=== PATIENT | female | born 1950 | race Caucasian/White ===

== ENCOUNTER → 2016-08-16 | Outpatient (CLI) | payer MEDICARE ==
[~2016-08-16] MED LIST: /GLIM2TA OR; ACAR25TA2 PO; ACET65TA OR; ACTO15TA OR; ALEVE PO; AMAR1TAB5 PO; ASPI325T OR; ATOR40TA PO; CEFT2ADD IV; COLC0.6T OR; EYECAP PO; GASTROGRAFIN SOLUTION 30ML (Q9963) As Ordered ONE; GLIM1TAB OR; GLUC1000 OR; HEPARIN IV; HYDR25TA6 OR; ISOVUE-370 76% 100ML VIAL (Q9967) As Ordered ONE; LISI40TA OR; METO25TA74 PO; NITR4TASL SL; OMEP40CA2 PO; PERC5TAB8 OR; PERC7.5T8 OR; SALINE FLUSH; SIMV20TA2 OR; TOPR25TA PO; VENTAER IN; VERA120T OR; VITA200025 PO; VITA500C24 PO; VITAMIN D50000 UNT OR; ZANT150T OR
--- NOTE | 2016-08-16 11:10 | REP ---
Clinical: Generalized acute pain. Technique: Axial contrast enhanced images from the lung bases to the pubic symphysis using oral and 100 ml Isovue 370 intravenous contrast material along with precontrast images of the abdomen as well as coronal and sagittal re-formations. Comparison: 08/17/2015. Findings: Lung bases clear. Visualized heart and pericardium normal. Liver, spleen, pancreas, gallbladder, bilateral adrenal glands and kidneys are normal in appearance. Mild hepatomegaly cannot be excluded. The enteric system is without obstruction or acute inflammatory process. Pelvis demonstrates normal bladder and evidence for prior hysterectomy. No ascites. No adenopathy. No free air. Vasculature normal. Musculoskeletal structures demonstrate degenerative changes without focal osseous abnormality. Impression: Mild hepatomegaly cannot be excluded. No acute intra-abdominal or pelvic pathology appreciated. Signed by Kashif Hill MD 08/16/2016 11:01 A
[2016-08-16 14:23] LABS: AMYLASE 94 U/L (25-115)
== END ==
LOC: M RAD 09:03
PROVIDERS: ATTEND Nurse Practitioner Adult Health
DX: R16.0 Hepatomegaly, not elsewhere classified (principal); R11.0 Nausea
CPT/HCPCS: 74178; 82150; 83690; Q9963; Q9967

== ENCOUNTER → 2016-08-23 | Outpatient (CLI) | payer MEDICARE ==
[~2016-08-23] MED LIST changes: -GASTROGRAFIN SOLUTION 30ML (Q9963) As Ordered ONE; -ISOVUE-370 76% 100ML VIAL (Q9967) As Ordered ONE
--- NOTE | 2016-08-23 08:12 | REP ---
Abdominal right upper quadrant ultrasound: There is no cholelithiasis, gallbladder wall thickening or pericholecystic fluid. There is no intrahepatic or extrahepatic biliary duct dilatation, the common duct measures 0.5 7 cm in diameter. The liver is homogeneous but moderately enlarged measuring 18 cm cranial caudad length. The visualized portion of the pancreatic head is unremarkable. There is no right renal hydronephrosis, calculus, mass or cyst and the right kidney is normal size measuring 10.5 cm craniocaudad length. No free fluid is identified. Impression: Mild to moderate hepatomegaly. Otherwise, negative abdominal right upper quadrant ultrasound. Signed by Young Allen MD 08/23/2016 08:03 A
== END ==
LOC: M RAD 07:28
PROVIDERS: ATTEND Nurse Practitioner Adult Health
DX: R16.0 Hepatomegaly, not elsewhere classified (principal)

== ENCOUNTER → 2016-09-24 | Outpatient (CLI) | payer MEDICARE ==
--- NOTE | 2016-09-24 12:47 | REP ---
BILIARY SCAN WITH GALLBLADDER EJECTION FRACTION: 09/24/2016 CLINICAL HISTORY: Right upper quadrant pain with intermittent nausea, reflux symptoms, bloating and tenderness. COMPARISON: Right upper quadrant ultrasound 08/23/2016. FINDINGS: The patient received 6.4 mCi technetium 99m mebrofenin via an IV. Sequential 5-minute images for 1 hour. Tracer distribution to the gallbladder is generally homogeneous. Activity is first seen in the duodenum at 10 minutes and into the jejunum by 15 minutes. There is good washout of activity from the liver. Activity is first seen in the gallbladder at 30 minutes with progressive filling of that structure and washout from the liver progressing normally. The gallbladder ejection fraction is calculated at 36% for 60 minutes. Given this technique, the normal range is greater than 35%. So this is at the low end of the normal range. There appears to be complete washout of activity from the liver. IMPRESSION: 1. Prompt homogeneous tracer distribution throughout the liver with good washout of activity from the liver and prompt appearance of activity into the small bowel with peristalsis observed duodenal activity at 10 minutes, jejunum at 15 minutes and gallbladder activity first seen at 30 minutes with progressive filling of the gallbladder. 2. Gallbladder ejection fraction at 36% is just above the lower end of the normal range. Signed by David Bernal MD 09/24/2016 05:02 P
== END ==
LOC: M RAD 07:27
PROVIDERS: ATTEND Nurse Practitioner Adult Health
DX: R10.11 Right upper quadrant pain (principal)
CPT/HCPCS: 78227; A9537; J2805

== ENCOUNTER → 2018-12-02 | Outpatient (CLI) | payer MEDICARE ==
[~2018-12-02] MED LIST changes: -/GLIM2TA OR; +AMAR1TAB5 OR; -ATOR40TA PO; +ATOR40TA75 PO; +METO1TAB32 PO; -METO25TA74 PO
--- NOTE | 2018-12-02 12:10 | REP ---
BILATERAL SCREENING DIGITAL MAMMOGRAM WITH 3D TOMOSYNTHESIS: There are no palpable abnormalities or other breast complaints. The the patient states she had a clinical breast examination December 06, 2018. The Tyrer-Cuzick Score is: 5.1% . Comparison is 04/13/2013. There are scattered areas of fibroglandular density. There is no dominant mass, micro calcific cluster or architectural distortion that would indicate malignancy. There are benign calcifications bilaterally. There are no additional findings on 3D tomosynthesiss. There is no change from the prior study. Impression: BIRADS/ACR category 2 mammogram. Benign findings . Recommendation: Routine annual screening mammography. This mammogram was interpreted with the aid of a FDA approved computer-aided detection system. A. Negative mammogram reports should not delay biopsy if a dominant or clinically suspicious mass is present. B. Not all breast cancers are identified by mammography or tomosynthesis. C. Adenosis and dense breasts may obscure an underlying neoplasm. Patient letter M1. Electronically Signed by Young Allen MD 12/02/2018 12:01 P
== END ==
LOC: M RAD 09:05
PROVIDERS: ATTEND Nurse Practitioner Adult Health
DX: Z12.31 Encounter for screening mammogram for malignant neoplasm of breast (principal)

== ENCOUNTER → 2019-11-30 | Outpatient (REF) | payer MEDICARE ==
[~2019-11-30] MED LIST changes: -OMEP40CA2 PO; +OMEP40CA97 PO
== END ==
LOC: M WUC 09:24
PROVIDERS: ATTEND Physician Assistant
DX: N39.0 Urinary tract infection, site not specified (principal)

== ENCOUNTER → 2020-03-08 | Outpatient (REF) | payer MEDICARE ==
[2020-03-08 17:05] LABS: TOTAL PROTEIN 8.2 GM/DL (6.4-8.2)
[2020-03-10 09:37] LABS: ALBUMIN 3.72 GM/DL (3.29-5.55); ALBUMIN % 45.4 % (55.8-66.1)
[2020-03-10 09:38] LABS: ALPHA-1-GLOBULIN % 5.4 % (2.9-4.9); ALPHA-1-GLOBULINS 0.44 GM/DL (0.17-0.41); ALPHA-2-GLOBULINS 1.23 GM/DL (0.42-0.99); BETA-1-GLOBULINS % 7.3 % (4.7-7.2); BETA-2-GLOBULINS 0.63 GM/DL (0.19-0.55); BETA-2-GLOBULINS % 7.7 % (3.2-6.5); GAMMA GLOBULIN % 19.2 % (11.1-18.8); GAMMA GLOBULINS 1.57 GM/DL (0.65-1.58)
== END ==
LOC: M LAB REF 16:15
PROVIDERS: ATTEND Nurse Practitioner Adult Health
DX: R79.89 Other specified abnormal findings of blood chemistry (principal)

== ENCOUNTER → 2020-03-17 | Outpatient (CLI) | payer MEDICARE ==
--- NOTE | 2020-03-17 10:00 | REPMRS ---
Patient History The patient states she had a clinical breast exam in February 2020. No known family history of cancer. Took estrogen for 2 months. 3D TOMOSYNTHESIS WAS PERFORMED. The Miko Shane lifetime risk for breast cancer is 4.8%. Volpara breast density b. Digital Woman Screen Mammo: March 17, 2020 - Exam #: [id number] Bilateral CC and MLO view(s) were taken. Technologist: Isabel Vines, Technologist Prior study comparison: December 02, 2018, bilateral digital mammo screening bilat, performed at [facility]. March 21, 2017, bilateral digital mammo screening bilat, performed at [facility]. FINDINGS: The breast tissue is heterogeneously dense. This may lower the sensitivity of mammography. There has been no change in the appearance of the mammogram from the prior studies. There is a moderate amount of residual fibroglandular tissue which is fairly symmetric. There is no interval development of dominant mass, areas of architectural distortion, or clustered microcalcification typical of malignancy. Assessment: BI-RADS/ACR category 1 mammogram. Negative Mammogram. Recommendation Routine screening mammogram in 1 year (for women over age 40). This mammogram was interpreted with the aid of an FDA-approved computer-aided dectection system. Electronically Signed By: Young Mcbride MD 03/17/20 1000
== END ==
LOC: M WHC 07:58
PROVIDERS: ATTEND Nurse Practitioner Adult Health
DX: Z12.31 Encounter for screening mammogram for malignant neoplasm of breast (principal)

== ENCOUNTER → 2020-07-27 | Outpatient (CLI) | payer MEDICARE ==
[~2020-07-27] MED LIST changes: +ANTI GAS PO; +AZEL1SPR3 NARES; +BAYE325T13 PO; +BAYECHW PO; +CART1TAB2 PO; +D31000TA2 PO; +D32000TA2 PO; +ESSETAB4 PO; +GLIP5TAB8 PO; +LISI40TA4 PO; +LORA-932 PO; +METF-877 PO; +METF500T13 PO; +MULTTAB61 PO; +NEXI20CA PO; +NEXI20CA33 PO; +NORV5TAB PO; +OMEP-218 PO; +OSTE1TAB2 PO; +POTA10808 PO; +POTA4.25 PO; +PRESCAP PO; +QC A650T3 PO; +SIMV20TA22 PO; +TRAM50TA2 PO; +VITC1TAB PO
== END ==
LOC: M LABSMTC 09:57
PROVIDERS: ATTEND Anesthesiology
DX: Z01.812 Encounter for preprocedural laboratory examination (principal); Z20.822 Contact with and (suspected) exposure to COVID-19

== ENCOUNTER 2020-08-01 07:13 | Day surgery (SDC) | payer MEDICARE ==
[~2020-08-01] VITALS: Ht 157.5 cm; Wt 85.6 kg
[~2020-08-01 07:13] MED LIST changes: +NS 1,000 ML IV ONE
[2020-08-01] MEDS ORDERED: propofoL 500 MG/50 ML VIAL As Ordered ONE (08:10)
[2020-08-01] MEDS ORDERED: LIDOCAINE 2% 100MG/5ML SDV (FOR ANES.) As Ordered ONE (08:10)
--- NOTE | 2020-08-01 08:12 | ROOR ---
Patient Name: Jessica Morejon Procedure Date: 08/01/2020 7:59 AM Date of : 1950 Age: 70 Room: [facility] Gender: Female Note Status: Finalized Procedure: Upper GI endoscopy + APC Indications: Unexplained iron deficiency anemia Providers: Lucius Burkett MD Referring MD: Elyse Multani NP Requesting Provider: Medicines: Monitored Anesthesia Care Complications: No immediate complications. Procedure: Pre-Anesthesia Assessment: - The heart rate, respiratory rate, oxygen saturations, blood pressure, adequacy of pulmonary ventilation, and response to care were monitored throughout the procedure. The Endoscope was introduced through the mouth, and advanced to the second part of duodenum. The upper GI endoscopy was accomplished without difficulty. The patient tolerated the procedure well. Findings: The Z-line was regular and was found 40 cm from the incisors. Mild gastric antral vascular ectasia without bleeding was present in the gastric antrum. Coagulation for tissue destruction using argon plasma at 0.8 liters/minute and 35 baron was successful. The exam of the duodenum was otherwise normal. Impression: - Z-line regular, 40 cm from the incisors. - Gastric antral vascular ectasia without bleeding. Treated with argon plasma coagulation (APC). - No specimens collected. - The examination was otherwise normal. Recommendation: - Patient has a contact number available for emergencies. The signs and symptoms of potential delayed complications were discussed with the patient. Return to normal activities tomorrow. Written discharge instructions were provided to the patient. - High fiber diet. - Discharge patient to home. - Follow an antireflux regimen. - Continue present medications. - Use Prilosec (omeprazole) 40 mg PO daily. - Use sucralfate tablets 1 gram PO BID. - Return to referring physician. - The findings and recommendations were discussed with the patient. Procedure Code(s): --- Professional --- 52850, Esophagogastroduodenoscopy, flexible, transoral; with ablation of tumor(s), polyp(s), or other lesion(s) (includes pre- and post-dilation and guide wire passage, when performed) Diagnosis Code(s): --- Professional --- K31.819, Angiodysplasia of stomach and duodenum without bleeding D50.9, Iron deficiency anemia, unspecified CPT copyright 2019 [employer] [place]. All rights reserved. The codes documented in this report are preliminary and upon tool supervisor review may be revised to meet current compliance requirements. Lucius Burkett MD Lucius Burkett MD 08/01/2020 8:11:50 AM Electronically signed by Lucius Burkett MD Number of Addenda: 0 Note Initiated On: 08/01/2020 7:59 AM Estimated Blood Loss: Estimated blood loss: none.
--- NOTE | 2020-08-01 08:28 | ROOR ---
Patient Name: Jessica Morejon Procedure Date: 08/01/2020 8:00 AM Date of : 1950 Age: 70 Room: [id number] Gender: Female Note Status: Finalized Procedure: Total Colonoscopy to Cecum Indications: Unexplained iron deficiency anemia Providers: Lucius Burkett MD Referring MD: Elyse Multani NP Requesting Provider: Medicines: Monitored Anesthesia Care Complications: No immediate complications. Procedure: Pre-Anesthesia Assessment: - The heart rate, respiratory rate, oxygen saturations, blood pressure, adequacy of pulmonary ventilation, and response to care were monitored throughout the procedure. The Colonoscope was introduced through the anus and advanced to the cecum, identified by appendiceal orifice and ileocecal valve. The colonoscopy was performed without difficulty. The patient tolerated the procedure well. The quality of the bowel preparation was good. Findings: The perianal and digital rectal examinations were normal. Non-bleeding internal hemorrhoids were found during retroflexion. The hemorrhoids were small and Grade I (internal hemorrhoids that do not prolapse). Multiple small and large-mouthed diverticula were found in the rectum, recto-sigmoid colon, sigmoid colon and descending colon. The exam was otherwise without abnormality on direct and retroflexion views. Impression: - Non-bleeding internal hemorrhoids. - Diverticulosis in the rectum, in the recto-sigmoid colon, in the sigmoid colon and in the descending colon. - The examination was otherwise normal on direct and retroflexion views. - No specimens collected. - The exam was otherwise normal to the cecum. Recommendation: - Patient has a contact number available for emergencies. The signs and symptoms of potential delayed complications were discussed with the patient. Return to normal activities tomorrow. Written discharge instructions were provided to the patient. - High fiber diet. - Discharge patient to home. - Continue present medications. - Repeat colonoscopy is not recommended due to current age (66 years or older) for screening purposes. - Return to referring physician. - The findings and recommendations were discussed with the patient. Procedure Code(s): --- Professional --- 87311, Colonoscopy, flexible; diagnostic, including collection of specimen(s) by brushing or washing, when performed (separate procedure) Diagnosis Code(s): --- Professional --- K64.0, First degree hemorrhoids D50.9, Iron deficiency anemia, unspecified K57.30, Diverticulosis of large intestine without perforation or abscess without bleeding CPT copyright 2019 [employer]. All rights reserved. The codes documented in this report are preliminary and upon textile clothing and footwear mechanic review may be revised to meet current compliance requirements. Lucius Burkett MD Lucius Burkett MD 08/01/2020 8:27:47 AM Electronically signed by Lucius Burkett MD Number of Addenda: 0 Note Initiated On: 08/01/2020 8:00 AM Estimated Blood Loss: Estimated blood loss: none.
[2020-08-01 08:55] VITALS: BP 139/63
== END 2020-08-01 09:09 | disposition home or self-care (01) ==
LOC: M OPP 07:13
PROVIDERS: ATTEND Internal Medicine Gastroenterology
DX: K57.30 Diverticulosis of large intestine without perforation or abscess without bleeding (principal); K64.0 First degree hemorrhoids; D50.9 Iron deficiency anemia, unspecified; K31.819 Angiodysplasia of stomach and duodenum without bleeding; E11.9 Type 2 diabetes mellitus without complications; I10 Essential (primary) hypertension; Z86.79 Personal history of other diseases of the circulatory system; Z95.5 Presence of coronary angioplasty implant and graft; Z79.82 Long term (current) use of aspirin; Z79.84 Long term (current) use of oral hypoglycemic drugs; Z79.899 Other long term (current) drug therapy; Z88.5 Allergy status to narcotic agent; Z88.8 Allergy status to other drugs, medicaments and biological substances

== ENCOUNTER → 2021-01-26 | Outpatient (CLI) | payer MEDICARE ==
[~2021-01-26] MED LIST changes: -NS 1,000 ML IV ONE; +OMEP40CA4 PO; -OMEP40CA97 PO
--- NOTE | 2021-01-26 14:18 | REP ---
INDICATION: FOREIGN BODY IN COLON, INIT ENC--XR BTW 130 AND 2 PT TODAY. Patient reports having taken the Agile test capsule the previous day. COMPARISON: Comparison radiographs June 06, 2010. TECHNIQUE: KUB: Two views. FINDINGS: Bowel gas pattern is normal. There is no evidence of the ingested capsule. There is some vascular calcification in the pelvis bilaterally. Psoas margins are symmetric. IMPRESSION: Normal bowel gas pattern. There is no evidence of the ingested Agile patency capsule. <Electronically signed by Geronimo Patel > 01/26/21 [id number]
== END ==
LOC: M RAD 13:36
PROVIDERS: ATTEND Internal Medicine Gastroenterology
DX: T18.4XXA Foreign body in colon, initial encounter (principal)

== ENCOUNTER → 2021-04-25 | Outpatient (CLI) | payer MEDICARE ==
[2021-04-25 10:22] LABS: BASO # 0.1 10^3/uL (0.0-0.2); BASO % 0.7 % (0.0-1.0); EOS # 0.2 10^3/uL (0.0-0.5); EOS % 2.8 % (0.0-3.0); HEMATOCRIT 36.2 % (36.0-47.0); HEMOGLOBIN 11.6 g/dl (12.0-15.5); LYMPH # 1.5 10^3/uL (1.5-5.0); LYMPH % 17.8 % (24.0-44.0); MEAN CORPUSCULAR HEMOGLOBIN 30.7 pg (27.0-33.0); MEAN CORPUSCULAR VOLUME 95.8 fl (80.0-96.0); MONO # 0.9 10^3/uL (0.0-0.8); MONO % 10.6 % (2.0-8.0); NEUTROPHILS # 5.8 10^3/uL (1.5-8.5); NEUTROPHILS % 67.3 % (36.0-66.0); PLATELET COUNT, AUTOMATED 224 10^3/uL (150-450); RED BLOOD COUNT 3.78 10^6/uL (4.00-5.40); WHITE BLOOD COUNT 8.6 10^3/uL (4.0-10.0)
[2021-04-25 11:00] LABS: ALBUMIN 3.3 GM/DL (3.2-5.2); ALT/SGPT 65 U/L (12-78); BILIRUBIN,TOTAL 0.5 MG/DL (0.2-1.0); BLOOD UREA NITROGEN 20 MG/DL (7-18); CALCIUM LEVEL 8.5 MG/DL (8.8-10.2); CARBON DIOXIDE LEVEL 26 MEQ/L (21-32); CHLORIDE LEVEL 103 MEQ/L (98-107); CREATININE FOR GFR 0.96 MG/DL (0.55-1.30); GLOMERULAR FILTRATION RATE > 60.0 (>39); GLUCOSE, FASTING 327 MG/DL (70-100); POTASSIUM SERUM 4.6 MEQ/L (3.5-5.1); SODIUM LEVEL 135 MEQ/L (136-145); TOTAL PROTEIN 8.2 GM/DL (6.4-8.2)
--- NOTE | 2021-04-25 11:36 | REP ---
INDICATION: ANGIODYSPLASIA OF STOM . COMPARISON: 08/23/2016. TECHNIQUE: Real-time sonographic evaluation of right upper quadrant performed. FINDINGS: The gallbladder demonstrates no evidence of intraluminal sludge or calculi, wall thickening or pericholecystic fluid. There is no intrahepatic or extrahepatic biliary dilatation, common bile duct measures 2 mm in maximum diameter. The liver demonstrates homogeneous echotexture with no gross mass. The pancreas demonstrates homogeneous echotexture with no gross mass. The right kidney demonstrates no hydronephrosis, with a normal size of 10.7 cm in length. No free fluid is seen. IMPRESSION: Negative right upper quadrant ultrasound. <Electronically signed by Young Mcbride > 04/25/21 [id number]
[2021-04-26 13:11] LABS: ANTINUCLEAR ANTIBODIES DIRECT Negative (Negative)
== END ==
LOC: M LAB 08:56
PROVIDERS: ATTEND Internal Medicine Gastroenterology
DX: K31.819 Angiodysplasia of stomach and duodenum without bleeding (principal)

== ENCOUNTER → 2021-06-28 | Outpatient (CLI) | payer MEDICARE ==
[~2021-06-28] MED LIST changes: +ACET650T61 PO; +INSULANT SC; +LISI20TA33 PO; +OMEP-173 PO; -OMEP-218 PO
== END ==
LOC: M LABSMTC 09:21
PROVIDERS: ATTEND Anesthesiology
DX: Z01.812 Encounter for preprocedural laboratory examination (principal); Z20.822 Contact with and (suspected) exposure to COVID-19

== ENCOUNTER 2021-07-03 09:23 | Day surgery (SDC) | payer MEDICARE ==
[~2021-07-03] VITALS: Ht 157.5 cm; Wt 86.6 kg
[~2021-07-03 09:23] MED LIST changes: +NS 1,000 ML IV ONE
[2021-07-03] MEDS ORDERED: propofoL 200 MG/20 ML VIAL As Ordered ONE (11:18)
[2021-07-03] MEDS ORDERED: LIDOCAINE 2% 100MG/5ML SDV (FOR ANES.) As Ordered ONE (11:19)
[2021-07-03 12:06] VITALS: BP 139/65
== END 2021-07-03 12:17 | disposition home or self-care (01) ==
LOC: M OPP 09:23
PROVIDERS: ATTEND Internal Medicine Gastroenterology
DX: K31.819 Angiodysplasia of stomach and duodenum without bleeding (principal); Z79.4 Long term (current) use of insulin; Z79.82 Long term (current) use of aspirin; Z79.899 Other long term (current) drug therapy; Z88.5 Allergy status to narcotic agent; Z88.8 Allergy status to other drugs, medicaments and biological substances

== ENCOUNTER → 2021-08-10 | Outpatient (CLI) | payer MEDICARE ==
[~2021-08-10] MED LIST changes: -D31000TA2 PO; -NS 1,000 ML IV ONE; +VITA100093 PO
== END ==
LOC: M WHC 08:12
PROVIDERS: ATTEND Nurse Practitioner Adult Health
DX: Z12.31 Encounter for screening mammogram for malignant neoplasm of breast (principal); Z78.0 Asymptomatic menopausal state

== ENCOUNTER → 2021-11-07 | Outpatient (CLI) | payer MEDICARE | LOC: M SLEEP HO 13:49 | PROVIDERS: ATTEND Internal Medicine Cardiovascular Disease | DX: I27.20 Pulmonary hypertension, unspecified (principal) ==

== ENCOUNTER 2022-11-07 18:22 | Emergency (ER) | payer OTHER, MEDICARE ==
[~2022-11-07] VITALS: Ht 160 cm; Wt 97.8 kg
[2022-11-07 18:27] VITALS: TEMP 97.8
[2022-11-07] MEDS ORDERED: LIDOCAINE 4% CREAM 5GM (LMX4) TOP ONE (21:30)
[2022-11-07] MEDS ORDERED: ACETAMINOPHEN 500 MG TAB PO ONE (21:30)
[2022-11-07] MEDS ORDERED: ANEC4CRE3 TOP (22:55)
[2022-11-07 22:57] VITALS: BP 182/76; O2SAT 98
== END 2022-11-07 23:02 | disposition home or self-care (01) ==
LOC: M ED 18:22
DX: S80.01XA Contusion of right knee, initial encounter (principal); S80.02XA Contusion of left knee, initial encounter; V49.40XA Driver injured in collision with unspecified motor vehicles in traffic accident, initial encounter; Y92.410 Unspecified street and highway as the place of occurrence of the external cause; E11.9 Type 2 diabetes mellitus without complications; I25.2 Old myocardial infarction; I10 Essential (primary) hypertension; K21.9 Gastro-esophageal reflux disease without esophagitis; Z88.8 Allergy status to other drugs, medicaments and biological substances; Z79.899 Other long term (current) drug therapy; Z79.84 Long term (current) use of oral hypoglycemic drugs; Z79.1 Long term (current) use of non-steroidal anti-inflammatories (NSAID)

== ENCOUNTER → 2023-08-07 | Outpatient (REF) | payer OTHER, MEDICARE ==
[~2023-08-07] MED LIST changes: +ANEC4CRE3 TOP; +GLIP5TAB17 PO; -GLIP5TAB8 PO
[2023-08-07 14:19] LABS: PERCENT SATURATION 5.4 % (13.2-45.0)
[2023-08-07 14:23] LABS: FERRITIN 5.7 NG/ML (7.3-270.7)
== END ==
LOC: M LAB REF 12:21
PROVIDERS: ATTEND Nurse Practitioner Family
DX: D64.9 Anemia, unspecified (principal)

== ENCOUNTER → 2023-10-11 | Outpatient (CLI) | payer MEDICARE | LOC: M PLAIMG 15:02 | PROVIDERS: ATTEND Internal Medicine Cardiovascular Disease | DX: I50.32 Chronic diastolic (congestive) heart failure (principal); I34.0 Nonrheumatic mitral (valve) insufficiency ==

== ENCOUNTER → 2023-11-01 | Outpatient (REF) | payer MEDICARE ==
[2023-11-01 13:58] LABS: FERRITIN 5.6 NG/ML (7.3-270.7)
== END ==
LOC: M LAB REF 12:34
PROVIDERS: ATTEND Nurse Practitioner Family
DX: D50.9 Iron deficiency anemia, unspecified (principal)

== ENCOUNTER → 2023-11-18 | Outpatient (CLI) | payer MEDICARE ==
[2023-11-18 11:04] LABS: BASO % 0.6 % (0.0-1.0); EOS # 0.3 10^3/uL (0.0-0.5); EOS % 3.5 % (0.0-3.0); HEMATOCRIT 27.3 % (36.0-47.0); HEMOGLOBIN 7.5 g/dl (12.0-15.5); LYMPH # 1.2 10^3/uL (1.5-5.0); LYMPH % 16.2 % (24.0-44.0); MEAN CORPUSCULAR HEMOGLOBIN 24.8 pg (27.0-33.0); MEAN CORPUSCULAR HGB CONC 27.5 g/dl (32.0-36.5); MEAN CORPUSCULAR VOLUME 90.4 fl (80.0-96.0); MONO # 0.9 10^3/uL (0.0-0.8); MONO % 12.3 % (2.0-8.0); NEUTROPHILS # 4.9 10^3/uL (1.5-8.5); PLATELET COUNT, AUTOMATED 273 10^3/uL (150-450); RED BLOOD COUNT 3.02 10^6/uL (4.00-5.40); WHITE BLOOD COUNT 7.2 10^3/uL (4.0-10.0)
[2023-11-18 11:40] LABS: ALBUMIN 3.1 G/DL (3.2-5.2); BLOOD UREA NITROGEN 15 MG/DL (9-23); CARBON DIOXIDE LEVEL 24 MMOL/L (20-31); CHLORIDE LEVEL 111 MMOL/L (98-107); CREATININE FOR GFR 0.78 MG/DL (0.55-1.30); GLOMERULAR FILTRATION RATE > 60.0 (>39); GLUCOSE, FASTING 154 MG/DL (74-106); PHOSPHORUS LEVEL 2.7 MG/DL (2.4-5.1); POTASSIUM SERUM 4.3 MMOL/L (3.5-5.1); SODIUM LEVEL 142 MMOL/L (136-145)
== END ==
LOC: M LAB 10:33
PROVIDERS: ATTEND Internal Medicine Cardiovascular Disease
DX: I50.33 Acute on chronic diastolic (congestive) heart failure (principal); D50.0 Iron deficiency anemia secondary to blood loss (chronic); I11.0 Hypertensive heart disease with heart failure

== ENCOUNTER → 2023-11-29 | Outpatient (CLI) | payer MEDICARE ==
[2023-11-29 14:50] LABS: ALBUMIN 3.2 G/DL (3.2-5.2); BLOOD UREA NITROGEN 16 MG/DL (9-23); CALCIUM LEVEL 7.9 MG/DL (8.3-10.6); CARBON DIOXIDE LEVEL 26 MMOL/L (20-31); CHLORIDE LEVEL 110 MMOL/L (98-107); CREATININE FOR GFR 0.91 MG/DL (0.55-1.30); GLOMERULAR FILTRATION RATE > 60.0 (>39); GLUCOSE, FASTING 134 MG/DL (74-106); PHOSPHORUS LEVEL 3.3 MG/DL (2.4-5.1); POTASSIUM SERUM 4.1 MMOL/L (3.5-5.1); SODIUM LEVEL 143 MMOL/L (136-145)
== END ==
LOC: M LAB 13:47
PROVIDERS: ATTEND Internal Medicine Cardiovascular Disease
DX: I50.33 Acute on chronic diastolic (congestive) heart failure (principal)

== ENCOUNTER 2023-12-03 16:20 | Inpatient (IN) | payer MEDICARE ==
[~2023-12-03] VITALS: Ht 157.5 cm; Wt 98.3 kg
[2023-12-03] MEDS: NS 1,000 ML IV SCH (17:25)
[2023-12-03] MEDS: MORPHINE 4 MG/ML 1ML VIAL IV ONE ×2 (17:25→22:48)
[2023-12-03 17:55] LABS: BASO % 0.4 % (0.0-1.0); EOS # 0.1 10^3/uL (0.0-0.5); EOS % 1.2 % (0.0-3.0); HEMATOCRIT 28.5 % (36.0-47.0); HEMOGLOBIN 8.1 g/dl (12.0-15.5); LYMPH # 0.9 10^3/uL (1.5-5.0); LYMPH % 9.2 % (24.0-44.0); MEAN CORPUSCULAR HEMOGLOBIN 26.8 pg (27.0-33.0); MEAN CORPUSCULAR HGB CONC 28.4 g/dl (32.0-36.5); MEAN CORPUSCULAR VOLUME 94.4 fl (80.0-96.0); MONO # 0.9 10^3/uL (0.0-0.8); MONO % 9.3 % (2.0-8.0); NEUTROPHILS # 7.4 10^3/uL (1.5-8.5); NEUTROPHILS % 79.1 % (36.0-66.0); PLATELET COUNT, AUTOMATED 268 10^3/uL (150-450); RED BLOOD COUNT 3.02 10^6/uL (4.00-5.40); WHITE BLOOD COUNT 9.4 10^3/uL (4.0-10.0)
[2023-12-03 18:05] LABS: INR 1.16; PARTIAL THROMBOPLASTIN TIME 31.3 SECONDS (24.8-34.2); PROTHROMBIN TIME 14.4 SECONDS (12.5-14.5)
[2023-12-03] MEDS: MORPHINE 4 MG/ML 1ML VIAL IV PRN (18:08)
[2023-12-03] MEDS: ONDANSETRON 4MG 2ML VIAL IV ONE (18:08)
[2023-12-03 18:14] LABS: CK-MB VALUE MASS < 1.0 NG/ML (<3.6)
[2023-12-03 18:15] LABS: ALBUMIN 3.1 G/DL (3.2-5.2); ALKALINE PHOSPHATASE 83 U/L (46-116); ALT/SGPT 19 U/L (7.0-40); AST/SGOT 25 U/L (<34); BILIRUBIN,DIRECT 0.1 MG/DL (<0.4); BILIRUBIN,TOTAL 0.4 MG/DL (0.3-1.2); BLOOD UREA NITROGEN 13 MG/DL (9-23); CALCIUM LEVEL 7.7 MG/DL (8.3-10.6); CARBON DIOXIDE LEVEL 23 MMOL/L (20-31); CHLORIDE LEVEL 110 MMOL/L (98-107); CPK CREATINE PHOSPHOKINASE 103 U/L (34-145); CREATININE FOR GFR 0.83 MG/DL (0.55-1.30); GLOMERULAR FILTRATION RATE > 60.0 (>39); GLUCOSE, FASTING 128 MG/DL (74-106); MB/CK RELATIVE INDEX 0.97 (< OR =4); SODIUM LEVEL 144 MMOL/L (136-145); TOTAL PROTEIN 7.3 G/DL (5.7-8.2)
[2023-12-03] MEDS ORDERED: METO1TAB7 PO (21:20)
[2023-12-03] MEDS ORDERED: OMEP-173 PO (21:20)
[2023-12-03] MEDS ORDERED: ONETAB35 PO (21:20)
[2023-12-03] MEDS ORDERED: EQL50TAB2 PO (21:25)
[2023-12-03] MEDS ORDERED: HOME MED LIST COMPLETE! XX SCH (21:30)
[2023-12-03] MEDS: ACETAMINOPHEN 500 MG TAB PO ONE (22:05)
[2023-12-03] MEDS ORDERED: NALOXONE INJ 0.4MG/1ML VIAL IV PRN (22:20)
[2023-12-03] MEDS ORDERED: DEXTROSE 50% 50ML SYRINGE IV PRN (22:20)
[2023-12-03] MEDS: LR 1,000 ML IV SCH (22:20)
[2023-12-03] MEDS ORDERED: ACETAMINOPHEN TAB 650MG DOSE (2X325MG) PO PRN (22:20)
[2023-12-03] MEDS ORDERED: GLUCOSE 4 GM CHEW PO PRN (22:20)
[2023-12-03] MEDS ORDERED: MAALOX 30 ML SUSP *UDC PO PRN (22:20)
[2023-12-03] MEDS ORDERED: GLUCAGON INJ 1MG VIAL SC PRN (22:20)
[2023-12-03] MEDS: METHOCARBAMOL 1,000 MG/10 ML VIAL IV ONE (22:50)
[2023-12-03] MEDS ORDERED: METHOCARBAMOL 1,000 MG/10 ML VIAL IV PRN (23:15)
[2023-12-03 23:55] LABS: MAGNESIUM LEVEL 1.3 MG/DL (1.8-2.4)
[2023-12-04] VITALS (13 sets, daily range): BP systolic 120–162; BP diastolic 54–81; TEMP 97.9–98.8; O2SAT 90–97
[2023-12-04] MEDS: INSULIN LISPRO (NovoLOG) PER UNIT SC SCH ×2 (01:02→20:57)
[2023-12-04] MEDS: MAGNESIUM OXIDE 400MG TAB (MAG-OX) PO ONE (01:03)
[2023-12-04] MEDS: MAG SULF 1GM/100ML (MAG RUN) 1 GM in IV 1 EA IV SCH (01:04)
[2023-12-04] MEDS: ONDANSETRON 4MG 2ML VIAL IV PRN ×2 (01:16→16:44)
[2023-12-04] MEDS: METOCLOPRAMIDE INJ 10MG/2ML VIAL IV ONE (03:19)
[2023-12-04 06:14] LABS: MEAN CORPUSCULAR HEMOGLOBIN 26.8 pg (27.0-33.0); MEAN CORPUSCULAR HGB CONC 28.8 g/dl (32.0-36.5); MEAN CORPUSCULAR VOLUME 93.4 fl (80.0-96.0); PLATELET COUNT, AUTOMATED 265 10^3/uL (150-450); RED BLOOD COUNT 2.57 10^6/uL (4.00-5.40); WHITE BLOOD COUNT 8.3 10^3/uL (4.0-10.0)
[2023-12-04] MEDS: HYDROMORPHONE HCL 0.5 MG/ 0.5 ML SYRINGE IV PRN ×3 (06:21→16:44)
[2023-12-04 06:35] LABS: HEMOGLOBIN 6.9 g/dl (12.0-15.5)
[2023-12-04 06:42] LABS: ALBUMIN 2.8 G/DL (3.2-5.2); ALKALINE PHOSPHATASE 71 U/L (46-116); ALT/SGPT 19 U/L (7.0-40); AST/SGOT 21 U/L (<34); BILIRUBIN,TOTAL 0.5 MG/DL (0.3-1.2); BLOOD UREA NITROGEN 12 MG/DL (9-23); CALCIUM LEVEL 7.6 MG/DL (8.3-10.6); CARBON DIOXIDE LEVEL 26 MMOL/L (20-31); CHLORIDE LEVEL 109 MMOL/L (98-107); CREATININE FOR GFR 0.75 MG/DL (0.55-1.30); GLOMERULAR FILTRATION RATE > 60.0 (>39); GLUCOSE, FASTING 170 MG/DL (74-106); MAGNESIUM LEVEL 1.8 MG/DL (1.8-2.4); POTASSIUM SERUM 4.5 MMOL/L (3.5-5.1); SODIUM LEVEL 140 MMOL/L (136-145); TOTAL PROTEIN 6.6 G/DL (5.7-8.2)
[2023-12-04 07:20] LABS: RSV AMPLIFICATION NEGATIVE (NEGATIVE)
[2023-12-04] MEDS: PANTOPRAZOLE 40MG VIAL IV SCH (08:45)
[2023-12-04] MEDS: DOCUSATE SODIUM 100MG CAPSULE PO SCH (08:46)
[2023-12-04] MEDS: ATORVASTATIN 20 MG TAB PO SCH (08:46)
[2023-12-04] MEDS: amLODIPine 5 MG TAB PO SCH (08:47)
[2023-12-04] MEDS: METOPROLOL SUCC (TopROL XL) 50MG **XL** TAB PO SCH (08:47)
[2023-12-04] MEDS: OMEPRAZOLE 20MG CAP PO SCH (08:47)
[2023-12-04] MEDS ORDERED: MIDAZOLAM INJ 2MG/2ML VIAL As Ordered ONE (13:24)
[2023-12-04] MEDS ORDERED: fentaNYL 100 MCG/2 ML INJECTION As Ordered ONE (13:24)
[2023-12-04] MEDS ORDERED: LIDOCAINE 2% 100MG/5ML SDV (FOR ANES.) As Ordered ONE (13:25)
[2023-12-04] MEDS ORDERED: ACETAMINOPHEN 1000MG 100ML IV BAG As Ordered ONE (13:25)
[2023-12-04] MEDS ORDERED: propofoL 200 MG/20 ML VIAL As Ordered ONE (13:25)
[2023-12-04] MEDS ORDERED: ONDANSETRON 4MG 2ML VIAL As Ordered ONE (13:25)
[2023-12-04] MEDS ORDERED: HYDROMORPHONE HCL 0.5 MG/ 0.5 ML SYRINGE IV PRN (14:10)
[2023-12-04] MEDS ORDERED: PHENYLephrine 500MCG 5ML (100MCG/ML) SYRINGE As Ordered ONE (15:17)
[2023-12-04] MEDS ORDERED: ePHEDrine SULFATE 25 MG/5 ML(5MG/ML) SYRINGE As Ordered ONE (15:17)
[2023-12-04] MEDS: ceFAZolin 2 GM/D5W 50 ML IV BAG As Ordered ONE (15:28)
[2023-12-04] MEDS ORDERED: oxyCODONE 5MG TAB PO PRN (16:25)
[2023-12-04] MEDS: LR 1,000 ML IV SCH (16:25)
[2023-12-04] MEDS ORDERED: fentaNYL 100 MCG/2 ML INJECTION IV PRN (16:25)
[2023-12-04] MEDS: METOCLOPRAMIDE INJ 10MG/2ML VIAL IV PRN (17:02)
[2023-12-04] MEDS: PROMETHAZINE 25MG/ML 1ML VIAL IV PRN (17:25)
[2023-12-04 17:40] LABS: HEMATOCRIT 27.1 % (36.0-47.0); HEMOGLOBIN 8.1 g/dl (12.0-15.5); MEAN CORPUSCULAR HEMOGLOBIN 27.4 pg (27.0-33.0); MEAN CORPUSCULAR HGB CONC 29.9 g/dl (32.0-36.5); MEAN CORPUSCULAR VOLUME 91.6 fl (80.0-96.0); PLATELET COUNT, AUTOMATED 314 10^3/uL (150-450); RED BLOOD COUNT 2.96 10^6/uL (4.00-5.40); WHITE BLOOD COUNT 14.9 10^3/uL (4.0-10.0)
[2023-12-05] VITALS (14 sets, daily range): BP systolic 93–159; BP diastolic 48–94; TEMP 97.9–99.5; O2SAT 90–96
[2023-12-05] MEDS: ceFAZolin SOD 2 GM in IV 1 EA IV SCH (00:40)
[2023-12-05] MEDS: ACETAMINOPHEN 500 MG TAB PO SCH (06:00)
[2023-12-05] MEDS ORDERED: KETOROLAC 30 MG/ML 1ML VIAL IV PRN (07:35)
[2023-12-05 08:05] LABS: MEAN CORPUSCULAR HEMOGLOBIN 27.2 pg (27.0-33.0); MEAN CORPUSCULAR VOLUME 90.8 fl (80.0-96.0); PLATELET COUNT, AUTOMATED 241 10^3/uL (150-450); RED BLOOD COUNT 2.39 10^6/uL (4.00-5.40); WHITE BLOOD COUNT 8.7 10^3/uL (4.0-10.0)
[2023-12-05 08:08] LABS: HEMATOCRIT 21.7 % (36.0-47.0); HEMOGLOBIN 6.5 g/dl (12.0-15.5)
[2023-12-05 08:18] LABS: BLOOD UREA NITROGEN 18 MG/DL (9-23); CALCIUM LEVEL 7.7 MG/DL (8.3-10.6); CARBON DIOXIDE LEVEL 25 MMOL/L (20-31); CHLORIDE LEVEL 106 MMOL/L (98-107); CREATININE FOR GFR 0.89 MG/DL (0.55-1.30); GLOMERULAR FILTRATION RATE > 60.0 (>39); GLUCOSE, FASTING 247 MG/DL (74-106); POTASSIUM SERUM 4.9 MMOL/L (3.5-5.1); SODIUM LEVEL 137 MMOL/L (136-145)
[2023-12-05] MEDS: INSULIN LISPRO (NovoLOG) PER UNIT SC SCH (08:31)
[2023-12-05] MEDS: NS 1,000 ML IV SCH (08:32)
[2023-12-05] MEDS: PERCOCET 5MG/325MG TAB PO PRN (08:32)
[2023-12-05] MEDS: CYCLOBENZAPRINE 5MG TABLET PO SCH (08:36)
[2023-12-05 19:06] LABS: HEMATOCRIT 28.3 % (36.0-47.0); MEAN CORPUSCULAR HEMOGLOBIN 28.5 pg (27.0-33.0); MEAN CORPUSCULAR HGB CONC 31.4 g/dl (32.0-36.5); MEAN CORPUSCULAR VOLUME 90.7 fl (80.0-96.0); PLATELET COUNT, AUTOMATED 197 10^3/uL (150-450); RED BLOOD COUNT 3.12 10^6/uL (4.00-5.40); WHITE BLOOD COUNT 8.1 10^3/uL (4.0-10.0)
[2023-12-05 19:10] LABS: HEMOGLOBIN 8.9 g/dl (12.0-15.5)
[2023-12-06] MEDS ORDERED: amLODIPine 5 MG TAB As Ordered ONE (09:45)
[2023-12-06] MEDS ORDERED: OMEPRAZOLE 20MG CAP As Ordered ONE (09:45)
[2023-12-06] MEDS ORDERED: ATORVASTATIN 20 MG TAB As Ordered ONE (09:45)
[2023-12-06] MEDS ORDERED: DOCUSATE SODIUM 100MG CAPSULE As Ordered ONE (09:45)
[2023-12-06] MEDS ORDERED: METOPROLOL SUCC (TopROL XL) 50MG **XL** TAB As Ordered ONE (09:45)
[2023-12-06] MEDS ORDERED: PANTOPRAZOLE 40MG VIAL As Ordered ONE (09:46)
[2023-12-06] MEDS ORDERED: INSULIN LISPRO (NovoLOG) PER UNIT As Ordered ONE (11:48)
[2023-12-06 12:00] VITALS: BP 144/68; TEMP 99; O2SAT 90
[2023-12-06 13:53] LABS: ALBUMIN 2.6 G/DL (3.2-5.2); ALKALINE PHOSPHATASE 65 U/L (46-116); ALT/SGPT 11 U/L (7.0-40); AST/SGOT 19 U/L (<34); BILIRUBIN,TOTAL 1.1 MG/DL (0.3-1.2); BLOOD UREA NITROGEN 17 MG/DL (9-23); CALCIUM LEVEL 8.2 MG/DL (8.3-10.6); CARBON DIOXIDE LEVEL 24 MMOL/L (20-31); CHLORIDE LEVEL 104 MMOL/L (98-107); CREATININE FOR GFR 0.75 MG/DL (0.55-1.30); GLOMERULAR FILTRATION RATE > 60.0 (>39); GLUCOSE, FASTING 264 MG/DL (74-106); MAGNESIUM LEVEL 1.5 MG/DL (1.8-2.4); PHOSPHORUS LEVEL 1.8 MG/DL (2.4-5.1); POTASSIUM SERUM 4.4 MMOL/L (3.5-5.1); SODIUM LEVEL 135 MMOL/L (136-145); TOTAL PROTEIN 6.4 G/DL (5.7-8.2)
[2023-12-06] MEDS: MAG SULF 1GM/100ML (MAG RUN) 1 GM in IV 1 EA IV SCH (16:14)
[2023-12-06 16:52] LABS: HEMOGLOBIN 9.3 g/dl (12.0-15.5); MEAN CORPUSCULAR HEMOGLOBIN 28.2 pg (27.0-33.0); MEAN CORPUSCULAR VOLUME 90.9 fl (80.0-96.0); PLATELET COUNT, AUTOMATED 200 10^3/uL (150-450); WHITE BLOOD COUNT 9.4 10^3/uL (4.0-10.0)
[2023-12-06] MEDS: HALOPERIDOL LACTATE 5MG/ML VIAL IM PRN (18:39)
[2023-12-06 20:00] VITALS: BP 124/61; TEMP 98.2; O2SAT 88
[2023-12-07 04:00] VITALS: BP_SYST 153; BP_DIAS 56; BP_DIAS 76; TEMP 98.4; O2SAT 92
[2023-12-07 06:59] LABS: HEMATOCRIT 28.3 % (36.0-47.0); HEMOGLOBIN 8.7 g/dl (12.0-15.5); MEAN CORPUSCULAR HEMOGLOBIN 28.2 pg (27.0-33.0); MEAN CORPUSCULAR HGB CONC 30.7 g/dl (32.0-36.5); MEAN CORPUSCULAR VOLUME 91.6 fl (80.0-96.0); PLATELET COUNT, AUTOMATED 197 10^3/uL (150-450); RED BLOOD COUNT 3.09 10^6/uL (4.00-5.40); WHITE BLOOD COUNT 10.1 10^3/uL (4.0-10.0)
[2023-12-07 07:25] LABS: BLOOD UREA NITROGEN 17 MG/DL (9-23); CALCIUM LEVEL 8.2 MG/DL (8.3-10.6); CARBON DIOXIDE LEVEL 26 MMOL/L (20-31); CHLORIDE LEVEL 102 MMOL/L (98-107); CREATININE FOR GFR 0.72 MG/DL (0.55-1.30); GLOMERULAR FILTRATION RATE > 60.0 (>39); GLUCOSE, FASTING 271 MG/DL (74-106); MAGNESIUM LEVEL 1.8 MG/DL (1.8-2.4); POTASSIUM SERUM 4.4 MMOL/L (3.5-5.1); SODIUM LEVEL 134 MMOL/L (136-145)
[2023-12-07 12:00] VITALS: BP 130/80; TEMP 98.6; O2SAT 94
[2023-12-07 20:00] VITALS: BP 109/67; TEMP 97.7; O2SAT 94
[2023-12-07] MEDS: LEVEMIR (INSULIN DETEMIR) 1 UNITS/0.01ML SC SCH (21:08)
[2023-12-07] MEDS: HEPARIN SOD (PORCINE) 5000UNITS/ML 1ML VIAL/SYRINGE SQ SCH (21:08)
[2023-12-07] MEDS: NITROFURANTOIN (MACROBID) 100 MG CAP PO SCH (21:09)
[2023-12-08 04:00] VITALS: BP 132/64; TEMP 97.9; O2SAT 94
[2023-12-08 06:50] LABS: BASO % 0.2 % (0.0-1.0); EOS # 0.4 10^3/uL (0.0-0.5); EOS % 4.8 % (0.0-3.0); HEMATOCRIT 28.4 % (36.0-47.0); HEMOGLOBIN 8.7 g/dl (12.0-15.5); LYMPH % 12.7 % (24.0-44.0); MEAN CORPUSCULAR HEMOGLOBIN 28.4 pg (27.0-33.0); MEAN CORPUSCULAR HGB CONC 30.6 g/dl (32.0-36.5); MEAN CORPUSCULAR VOLUME 92.8 fl (80.0-96.0); MONO % 12.1 % (2.0-8.0); NEUTROPHILS # 5.6 10^3/uL (1.5-8.5); NEUTROPHILS % 69.3 % (36.0-66.0); PLATELET COUNT, AUTOMATED 186 10^3/uL (150-450); RED BLOOD COUNT 3.06 10^6/uL (4.00-5.40); WHITE BLOOD COUNT 8.1 10^3/uL (4.0-10.0)
[2023-12-08 07:16] LABS: BLOOD UREA NITROGEN 18 MG/DL (9-23); CARBON DIOXIDE LEVEL 26 MMOL/L (20-31); CHLORIDE LEVEL 105 MMOL/L (98-107); CREATININE FOR GFR 0.68 MG/DL (0.55-1.30); GLOMERULAR FILTRATION RATE > 60.0 (>39); GLUCOSE, FASTING 195 MG/DL (74-106); MAGNESIUM LEVEL 1.6 MG/DL (1.8-2.4); SODIUM LEVEL 137 MMOL/L (136-145)
[2023-12-08] MEDS: MAG SULF 1GM/100ML (MAG RUN) 1 GM in IV 1 EA IV SCH (08:19)
[2023-12-08] MEDS: MOM 30ML SUSPENSION UDC PO PRN (10:23)
[2023-12-08 12:00] VITALS: BP 133/54; TEMP 98.1; O2SAT 96
[2023-12-08 19:33] VITALS: BP 141/60; TEMP 98.1; O2SAT 95
[2023-12-08] MEDS: HEPARIN SOD (PORCINE) 5000UNITS/ML 1ML VIAL/SYRINGE SQ SCH (20:12)
[2023-12-09 04:23] VITALS: BP 156/68; TEMP 97.5; O2SAT 95
[2023-12-09 11:55] VITALS: BP 132/62; TEMP 98.1; O2SAT 96
[2023-12-09] MEDS: PERCOCET 5MG/325MG TAB PO PRN (19:29)
[2023-12-09 19:44] VITALS: BP 143/66; TEMP 98.1; O2SAT 96
[2023-12-10 04:12] VITALS: BP 124/89; TEMP 97.2; O2SAT 98
[2023-12-10 08:45] LABS: BASO % 0.4 % (0.0-1.0); EOS # 0.3 10^3/uL (0.0-0.5); EOS % 3.8 % (0.0-3.0); HEMATOCRIT 30.2 % (36.0-47.0); HEMOGLOBIN 9.3 g/dl (12.0-15.5); LYMPH # 1.2 10^3/uL (1.5-5.0); LYMPH % 14.5 % (24.0-44.0); MEAN CORPUSCULAR HEMOGLOBIN 28.4 pg (27.0-33.0); MEAN CORPUSCULAR HGB CONC 30.8 g/dl (32.0-36.5); MEAN CORPUSCULAR VOLUME 92.1 fl (80.0-96.0); MONO % 11.3 % (2.0-8.0); NEUTROPHILS # 5.9 10^3/uL (1.5-8.5); NEUTROPHILS % 69.3 % (36.0-66.0); PLATELET COUNT, AUTOMATED 238 10^3/uL (150-450); RED BLOOD COUNT 3.28 10^6/uL (4.00-5.40); WHITE BLOOD COUNT 8.5 10^3/uL (4.0-10.0)
[2023-12-10 09:12] LABS: BLOOD UREA NITROGEN 17 MG/DL (9-23); CALCIUM LEVEL 7.9 MG/DL (8.3-10.6); CARBON DIOXIDE LEVEL 26 MMOL/L (20-31); CHLORIDE LEVEL 102 MMOL/L (98-107); GLOMERULAR FILTRATION RATE > 60.0 (>39); GLUCOSE, FASTING 176 MG/DL (74-106); MAGNESIUM LEVEL 1.6 MG/DL (1.8-2.4); SODIUM LEVEL 135 MMOL/L (136-145)
[2023-12-10 12:00] VITALS: BP 130/65; TEMP 97.5; O2SAT 95
[2023-12-10] MEDS: MAG SULF 1GM/100ML (MAG RUN) 1 GM in IV 1 EA IV SCH (13:00)
[2023-12-10] MEDS: TORSEMIDE 10 MG TABLET PO SCH (13:00)
[2023-12-10 20:21] VITALS: BP 160/72; TEMP 98.1; O2SAT 94
[2023-12-11 04:14] VITALS: BP 137/64; TEMP 98.1; O2SAT 93
[2023-12-11] MEDS: ALBUTEROL 90 MCG/ACT 8GM HFA INHALER INH PRN (10:07)
[2023-12-11 12:32] VITALS: BP 110/56; TEMP 98.1; O2SAT 94
[2023-12-11] MEDS: SENOKOT S TAB PO PRN (12:59)
[2023-12-11] MEDS ORDERED: MAG SULF 1GM/100ML (MAG RUN) 1 GM in IV 1 EA IV SCH (14:25)
[2023-12-11 20:34] VITALS: BP 150/64; TEMP 98.1; O2SAT 100
[2023-12-12 04:09] VITALS: BP 146/72; TEMP 98.1; O2SAT 95
[2023-12-12 06:21] LABS: BASO # 0.1 10^3/uL (0.0-0.2); BASO % 0.7 % (0.0-1.0); EOS # 0.3 10^3/uL (0.0-0.5); EOS % 3.7 % (0.0-3.0); HEMATOCRIT 29.5 % (36.0-47.0); HEMOGLOBIN 8.9 g/dl (12.0-15.5); LYMPH # 1.4 10^3/uL (1.5-5.0); LYMPH % 18.5 % (24.0-44.0); MEAN CORPUSCULAR HEMOGLOBIN 28.3 pg (27.0-33.0); MEAN CORPUSCULAR HGB CONC 30.2 g/dl (32.0-36.5); MEAN CORPUSCULAR VOLUME 93.7 fl (80.0-96.0); MONO % 12.9 % (2.0-8.0); NEUTROPHILS # 4.7 10^3/uL (1.5-8.5); NEUTROPHILS % 62.6 % (36.0-66.0); PLATELET COUNT, AUTOMATED 247 10^3/uL (150-450); RED BLOOD COUNT 3.15 10^6/uL (4.00-5.40); WHITE BLOOD COUNT 7.5 10^3/uL (4.0-10.0)
[2023-12-12 06:52] LABS: BLOOD UREA NITROGEN 17 MG/DL (9-23); CALCIUM LEVEL 8.1 MG/DL (8.3-10.6); CARBON DIOXIDE LEVEL 29 MMOL/L (20-31); CHLORIDE LEVEL 100 MMOL/L (98-107); CREATININE FOR GFR 0.79 MG/DL (0.55-1.30); GLOMERULAR FILTRATION RATE > 60.0 (>39); GLUCOSE, FASTING 143 MG/DL (74-106); MAGNESIUM LEVEL 1.7 MG/DL (1.8-2.4); SODIUM LEVEL 135 MMOL/L (136-145)
[2023-12-12] MEDS ORDERED: TORS10TA3 PO (07:54)
[2023-12-12] MEDS ORDERED: ASPI-255 PO (07:54)
[2023-12-12] MEDS: MAG SULF 1GM/100ML (MAG RUN) 1 GM in IV 1 EA IV SCH (08:01)
[2023-12-12 08:03] VITALS: BP 140/62
[2023-12-12] MEDS ORDERED: INSUHUMDS SC (08:59)
[2023-12-12] MEDS ORDERED: INSUDET SC (08:59)
[2023-12-12 12:10] VITALS: BP 133/59; TEMP 98.2; O2SAT 94
== END 2023-12-12 14:17 | DRG 480 ==
LOC: EDBD 16:20 → M ED 16:20 → M ED INP 22:18 → M MS5PR 12-04 00:50
PROVIDERS: ADMIT Preventive Medicine Undersea and Hyperbaric Medicine; ATTEND Hospitalist
PROC: 30233N1 Transfusion of Nonautologous Red Blood Cells into Peripheral Vein, Percutaneous Approach (ICD-10-PCS; 2023-12-04)
PROC: 0QS736Z Reposition Left Upper Femur with Intramedullary Internal Fixation Device, Percutaneous Approach (ICD-10-PCS; principal; 2023-12-04 14:30)
DX: S72.142A Displaced intertrochanteric fracture of left femur, initial encounter for closed fracture (principal); G93.41 Metabolic encephalopathy; I50.32 Chronic diastolic (congestive) heart failure; S42.202A Unspecified fracture of upper end of left humerus, initial encounter for closed fracture; R18.8 Other ascites; N39.0 Urinary tract infection, site not specified; I25.10 Atherosclerotic heart disease of native coronary artery without angina pectoris; Z95.5 Presence of coronary angioplasty implant and graft; E66.01 Morbid (severe) obesity due to excess calories; E11.51 Type 2 diabetes mellitus with diabetic peripheral angiopathy without gangrene; W01.0XXA Fall on same level from slipping, tripping and stumbling without subsequent striking against object, initial encounter; M50.30 Other cervical disc degeneration, unspecified cervical region; E78.5 Hyperlipidemia, unspecified; M19.012 Primary osteoarthritis, left shoulder; Y92.010 Kitchen of single-family (private) house as the place of occurrence of the external cause; J45.909 Unspecified asthma, uncomplicated; Y93.9 Activity, unspecified; I25.2 Old myocardial infarction; Y99.8 Other external cause status; D50.9 Iron deficiency anemia, unspecified; M17.0 Bilateral primary osteoarthritis of knee; K21.9 Gastro-esophageal reflux disease without esophagitis; I11.0 Hypertensive heart disease with heart failure; Z79.4 Long term (current) use of insulin; Z79.82 Long term (current) use of aspirin; Z79.899 Other long term (current) drug therapy; Z88.0 Allergy status to penicillin; Z88.5 Allergy status to narcotic agent; Z88.8 Allergy status to other drugs, medicaments and biological substances; Z68.39 Body mass index [BMI] 39.0-39.9, adult

== ENCOUNTER → 2023-12-18 | Outpatient (REF) ==
[~2023-12-18] MED LIST changes: +ASPI-255 PO; +EQL50TAB2 PO; +INSUDET SC; +INSUHUMDS SC; +METO1TAB7 PO; +ONETAB35 PO; +TORS10TA3 PO
[2023-12-18 11:29] LABS: HEMATOCRIT 36.5 % (36.0-47.0); HEMOGLOBIN 10.8 g/dl (12.0-15.5); MEAN CORPUSCULAR HEMOGLOBIN 28.4 pg (27.0-33.0); MEAN CORPUSCULAR HGB CONC 29.6 g/dl (32.0-36.5); MEAN CORPUSCULAR VOLUME 96.1 fl (80.0-96.0); PLATELET COUNT, AUTOMATED 639 10^3/uL (150-450); WHITE BLOOD COUNT 10.2 10^3/uL (4.0-10.0)
[2023-12-18 11:59] LABS: BLOOD UREA NITROGEN 16 MG/DL (9-23); CALCIUM LEVEL 8.8 MG/DL (8.3-10.6); CARBON DIOXIDE LEVEL 24 MMOL/L (20-31); CHLORIDE LEVEL 101 MMOL/L (98-107); CREATININE FOR GFR 0.81 MG/DL (0.55-1.30); GLOMERULAR FILTRATION RATE > 60.0 (>39); GLUCOSE, FASTING 113 MG/DL (74-106); POTASSIUM SERUM 4.4 MMOL/L (3.5-5.1); SODIUM LEVEL 138 MMOL/L (136-145)
== END ==
PROVIDERS: ATTEND Physician Assistant
DX: I10 Essential (primary) hypertension (principal)

== ENCOUNTER → 2023-12-19 | Outpatient (REF) | PROVIDERS: ATTEND Physician Assistant | DX: E11.9 Type 2 diabetes mellitus without complications (principal) ==

== ENCOUNTER → 2023-12-21 | Outpatient (REF) | PROVIDERS: ATTEND Physician Assistant | DX: R19.7 Diarrhea, unspecified (principal) ==

== ENCOUNTER → 2023-12-25 | Outpatient (REF) | LOC: M RAD 08:54 | PROVIDERS: ATTEND Orthopaedic Surgery | DX: R52 Pain, unspecified (principal) ==

== ENCOUNTER → 2023-12-25 | Outpatient (REF) | PROVIDERS: ATTEND Physician Assistant | DX: I10 Essential (primary) hypertension (principal) ==

== ENCOUNTER → 2023-12-25 | Outpatient (REF) | PROVIDERS: ATTEND Physician Assistant | DX: I10 Essential (primary) hypertension (principal); Z53.8 Procedure and treatment not carried out for other reasons ==

== ENCOUNTER → 2023-12-25 | Outpatient (REF) | payer MEDICARE ==
[2023-12-25 18:09] LABS: HEMATOCRIT 33.3 % (36.0-47.0); MEAN CORPUSCULAR HEMOGLOBIN 28.9 pg (27.0-33.0); MEAN CORPUSCULAR VOLUME 96.2 fl (80.0-96.0); PLATELET COUNT, AUTOMATED 314 10^3/uL (150-450); RED BLOOD COUNT 3.46 10^6/uL (4.00-5.40); WHITE BLOOD COUNT 5.6 10^3/uL (4.0-10.0)
[2023-12-25 18:40] LABS: BLOOD UREA NITROGEN 17 MG/DL (9-23); CALCIUM LEVEL 7.7 MG/DL (8.3-10.6); CARBON DIOXIDE LEVEL 24 MMOL/L (20-31); CHLORIDE LEVEL 104 MMOL/L (98-107); GLOMERULAR FILTRATION RATE > 60.0 (>39); GLUCOSE, FASTING 202 MG/DL (74-106); POTASSIUM SERUM 3.7 MMOL/L (3.5-5.1); SODIUM LEVEL 138 MMOL/L (136-145)
== END ==
PROVIDERS: ATTEND Physician Assistant
DX: I10 Essential (primary) hypertension (principal)

== ENCOUNTER → 2024-01-14 | Outpatient (REF) | PROVIDERS: ATTEND Physician Assistant | DX: R19.7 Diarrhea, unspecified (principal) ==

== ENCOUNTER → 2024-01-22 | Outpatient (CLI) | payer MEDICARE | LOC: M SOG 08:00 | PROVIDERS: ATTEND Orthopaedic Surgery | DX: M25.512 Pain in left shoulder (principal); M25.552 Pain in left hip ==

== ENCOUNTER → 2024-01-29 | Outpatient (REF) ==
[2024-01-29 09:47] LABS: HEMATOCRIT 37.9 % (36.0-47.0); HEMOGLOBIN 12.1 g/dl (12.0-15.5); MEAN CORPUSCULAR HEMOGLOBIN 29.6 pg (27.0-33.0); MEAN CORPUSCULAR HGB CONC 31.9 g/dl (32.0-36.5); MEAN CORPUSCULAR VOLUME 92.7 fl (80.0-96.0); PLATELET COUNT, AUTOMATED 286 10^3/uL (150-450); RED BLOOD COUNT 4.09 10^6/uL (4.00-5.40); WHITE BLOOD COUNT 7.6 10^3/uL (4.0-10.0)
[2024-01-29 10:23] LABS: CALCIUM LEVEL 7.2 MG/DL (8.3-10.6); CREATININE FOR GFR 1.2 MG/DL (0.55-1.30); GLOMERULAR FILTRATION RATE 46.6 (>39); POTASSIUM SERUM 3.7 MMOL/L (3.5-5.1)
== END ==
PROVIDERS: ATTEND Physician Assistant
DX: I10 Essential (primary) hypertension (principal)

== ENCOUNTER → 2024-02-27 | Outpatient (REF) | PROVIDERS: ATTEND Physician Assistant | DX: I10 Essential (primary) hypertension (principal) ==

== ENCOUNTER → 2024-02-27 | Outpatient (REF) | payer MEDICARE | PROVIDERS: ATTEND Physician Assistant | DX: I10 Essential (primary) hypertension (principal); Z53.8 Procedure and treatment not carried out for other reasons ==

== ENCOUNTER → 2024-03-24 | Outpatient (REF) | payer MEDICARE | LOC: M LAB REF 16:21 | PROVIDERS: ATTEND Nurse Practitioner Family | DX: L02.13 Carbuncle of neck (principal) ==

== ENCOUNTER → 2024-04-01 | Outpatient (CLI) | payer MEDICARE ==
[~2024-04-01] MED LIST changes: +AMLO1TAB24 PO; +ASPI81TA26 PO; +BACI1CAP4 PO; +BISAC5TA PO; +FERR1TAB8 PO; +GABA-1171 PO; +LANTINJ4 INJ; +LEVO75TAB PO; +METH-1165 PO; +OXYC1TAB23 PO; +POTA10807 PO; -POTA10808 PO; +PROHANCE 279.3MG/ML 15ML VIAL As Ordered ONE; +ZYVO1TAB PO
== END ==
LOC: M SOG 07:49
PROVIDERS: ATTEND Physician Assistant
DX: S42.202D Unspecified fracture of upper end of left humerus, subsequent encounter for fracture with routine healing (principal); S72.142D Displaced intertrochanteric fracture of left femur, subsequent encounter for closed fracture with routine healing; Y93.9 Activity, unspecified; Y92.9 Unspecified place or not applicable

== ENCOUNTER → 2024-04-22 | Outpatient (CLI) | payer MEDICARE ==
[~2024-04-22] MED LIST changes: -AMLO1TAB24 PO; -ASPI81TA26 PO; -BACI1CAP4 PO; -BISAC5TA PO; -FERR1TAB8 PO; -GABA-1171 PO; -LANTINJ4 INJ; -LEVO75TAB PO; -METH-1165 PO; -OXYC1TAB23 PO; -PROHANCE 279.3MG/ML 15ML VIAL As Ordered ONE; -ZYVO1TAB PO
== END ==
LOC: M SOG 07:50
PROVIDERS: ATTEND Orthopaedic Surgery
DX: M51.360 Other intervertebral disc degeneration, lumbar region with discogenic back pain only (principal); M25.512 Pain in left shoulder; M25.552 Pain in left hip

== ENCOUNTER 2024-05-15 15:45 | Outpatient (RCR) | payer MEDICARE | END 2024-05-19 | LOC: M PT 15:45 | PROVIDERS: ATTEND Orthopaedic Surgery | DX: M54.50 Low back pain, unspecified (principal); S42.212D Unspecified displaced fracture of surgical neck of left humerus, subsequent encounter for fracture with routine healing; S72.142D Displaced intertrochanteric fracture of left femur, subsequent encounter for closed fracture with routine healing ==

== ENCOUNTER 2024-05-22 14:23 | Inpatient (IN) | payer MEDICARE ==
[~2024-05-22] VITALS: Ht 157.5 cm; Wt 83.2 kg
[2024-05-22] MEDS ORDERED: ISOVUE-370 76% 100ML VIAL As Ordered ONE (15:26)
[2024-05-22 15:29] LABS: BASO % 0.4 % (0.0-1.0); EOS # 0.1 10^3/uL (0.0-0.5); EOS % 0.7 % (0.0-3.0); HEMATOCRIT 28.5 % (36.0-47.0); HEMOGLOBIN 8.8 g/dl (12.0-15.5); LYMPH # 0.9 10^3/uL (1.5-5.0); LYMPH % 8.7 % (24.0-44.0); MEAN CORPUSCULAR HGB CONC 30.9 g/dl (32.0-36.5); MEAN CORPUSCULAR VOLUME 100.4 fl (80.0-96.0); MONO # 1.1 10^3/uL (0.0-0.8); MONO % 10.3 % (2.0-8.0); NEUTROPHILS # 8.1 10^3/uL (1.5-8.5); NEUTROPHILS % 79.3 % (36.0-66.0); PLATELET COUNT, AUTOMATED 366 10^3/uL (150-450); RED BLOOD COUNT 2.84 10^6/uL (4.00-5.40); WHITE BLOOD COUNT 10.2 10^3/uL (4.0-10.0)
[2024-05-22 15:43] LABS: INR 1.12; PROTHROMBIN TIME 14.7 SECONDS (12.5-14.5)
[2024-05-22 15:57] LABS: ALBUMIN 3.1 G/DL (3.2-5.2); BILIRUBIN,DIRECT 0.2 MG/DL (<0.4); BILIRUBIN,TOTAL 0.4 MG/DL (0.3-1.2); TOTAL PROTEIN 8.7 G/DL (5.7-8.2)
[2024-05-22 16:01] LABS: ERYTHROCYTE SEDIMENTATION RATE 89 mm/hr (0-30)
[2024-05-22 16:09] LABS: PROCALCITONIN 34.67 ng/ml
[2024-05-22] MEDS: VANCOMYCIN HCL 1,500 MG, VIAL MATE ADAPTER 1 EACH in NS 500 ML IV ONE (17:01)
[2024-05-22] MEDS ORDERED: ASPI81TA26 PO (18:58)
[2024-05-22] MEDS ORDERED: LANTINJ4 INJ (18:58)
[2024-05-22] MEDS ORDERED: HOME MED LIST COMPLETE! XX SCH (19:15)
[2024-05-22] MEDS: MORPHINE 2 MG/ML 1ML VIAL IM ONE (19:23)
[2024-05-22] MEDS ORDERED: MAALOX 30 ML SUSP *UDC PO PRN (20:45)
[2024-05-22] MEDS ORDERED: DEXTROSE 50% 50ML SYRINGE IV PRN (20:45)
[2024-05-22] MEDS ORDERED: GLUCOSE 4 GM CHEW PO PRN (20:45)
[2024-05-22] MEDS ORDERED: NITROGLYCERIN 0.4MG SUBL TABLET SL SCH (20:45)
[2024-05-22] MEDS ORDERED: GLUCAGON INJ 1MG VIAL SC PRN (20:45)
[2024-05-22] MEDS ORDERED: ACETAMINOPHEN 325 MG TAB PO PRN (20:45)
[2024-05-22 20:52] LABS: HEMOGLOBIN A1c 5.6 % (4.0-6.0)
[2024-05-22] MEDS: INSULIN LISPRO (NovoLOG) PER UNIT SC SCH (21:00)
[2024-05-22] MEDS: METHOCARBAMOL 1,000 MG/10 ML VIAL IV ONE (21:12)
[2024-05-22] MEDS: ACETAMINOPHEN *IV* 1,000 MG in IV 1 EA IV ONE (21:47)
[2024-05-22] MEDS: SODIUM CHLORIDE 0.9% 1000 ML IV SCH (22:03)
[2024-05-22] MEDS: PERCOCET 5MG/325MG TAB PO PRN (22:06)
[2024-05-22] MEDS: diazePAM 2 MG TAB PO ONE (22:06)
[2024-05-22] MEDS: DULoxetine 20MG CAP (CYMBALTA) PO SCH (22:08)
[2024-05-22] MEDS: DOCUSATE SODIUM 100MG CAPSULE PO SCH (22:08)
[2024-05-22] MEDS: LEVEMIR (INSULIN DETEMIR) 1 UNITS/0.01ML SC SCH (22:08)
[2024-05-22] MEDS: MEROPENEM INJ 1 GM in IV 1 EA IV SCH (23:33)
[2024-05-23] VITALS (12 sets, daily range): BP systolic 113–145; BP diastolic 45–81; TEMP 97.7–98.2; O2SAT 93–98
[2024-05-23] MEDS: methocarbamoL 500 MG TAB PO PRN (00:52)
[2024-05-23] MEDS: VANCOMYCIN HCL 1,000 MG, VIAL MATE ADAPTER 1 EACH in NS 250 ML IV SCH ×2 (04:39→18:35)
[2024-05-23] MEDS: ACETAMINOPHEN 500 MG TAB PO PRN (04:41)
[2024-05-23 06:11] LABS: HEMATOCRIT 22.6 % (36.0-47.0); MEAN CORPUSCULAR HEMOGLOBIN 30.7 pg (27.0-33.0); MEAN CORPUSCULAR HGB CONC 30.5 g/dl (32.0-36.5); MEAN CORPUSCULAR VOLUME 100.4 fl (80.0-96.0); RED BLOOD COUNT 2.25 10^6/uL (4.00-5.40); WHITE BLOOD COUNT 7.9 10^3/uL (4.0-10.0)
[2024-05-23 06:35] LABS: C REACTIVE PROTEIN QUANTITATIV 7.17 MG/DL (<1.0)
[2024-05-23 06:46] LABS: PROCALCITONIN 24.02 ng/ml
[2024-05-23 06:49] LABS: ALBUMIN 2.3 G/DL (3.2-5.2); ALKALINE PHOSPHATASE 108 U/L (35-104); ALT/SGPT 17 U/L (7.0-40); AST/SGOT 15 U/L (<34); BILIRUBIN,TOTAL 0.3 MG/DL (0.3-1.2); BLOOD UREA NITROGEN 9 MG/DL (9-23); CALCIUM LEVEL 8.1 MG/DL (8.3-10.6); CARBON DIOXIDE LEVEL 22 MMOL/L (20-31); CHLORIDE LEVEL 108 MMOL/L (98-107); CREATININE FOR GFR 0.62 MG/DL (0.55-1.30); GLOMERULAR FILTRATION RATE > 60.0 (>39); GLUCOSE, FASTING 175 MG/DL (74-106); MAGNESIUM LEVEL 1.4 MG/DL (1.8-2.4); SODIUM LEVEL 139 MMOL/L (136-145); TOTAL PROTEIN 6.6 G/DL (5.7-8.2)
[2024-05-23 06:54] LABS: HEMOGLOBIN 6.9 g/dl (12.0-15.5)
[2024-05-23 06:58] LABS: PLATELET COUNT, AUTOMATED 264 10^3/uL (150-450)
[2024-05-23 07:19] LABS: ERYTHROCYTE SEDIMENTATION RATE 38 mm/hr (0-30)
[2024-05-23] MEDS: INSULIN LISPRO (NovoLOG) PER UNIT SC SCH (08:25)
[2024-05-23] MEDS: TORSEMIDE 10 MG TABLET PO SCH (08:25)
[2024-05-23] MEDS: VITAMIN D 1,000 INTERNATIONAL UNITS TABLET PO SCH (08:25)
[2024-05-23] MEDS: ASPIRIN 81MG ENTERIC TABLET PO SCH (08:25)
[2024-05-23] MEDS: OMEPRAZOLE 20MG CAP PO SCH (08:26)
[2024-05-23] MEDS: ATORVASTATIN 20 MG TAB PO SCH (08:26)
[2024-05-23] MEDS: LORATADINE 10 MG TAB PO SCH (08:26)
[2024-05-23] MEDS: amLODIPine 5 MG TAB PO SCH (08:26)
[2024-05-23] MEDS: METOPROLOL SUCC (TopROL XL) 50MG **XL** TAB PO SCH (08:26)
[2024-05-23] MEDS: MAG SULF 1GM/100ML (MAG RUN) 1 GM in IV 1 EA IV SCH (09:28)
[2024-05-23] MEDS: MAGNESIUM OXIDE 400MG TAB (MAG-OX) PO SCH (09:32)
[2024-05-23] MEDS: ONDANSETRON 4MG ORAL DISINTEGRATING TAB SL PRN (10:41)
[2024-05-23 11:20] LABS: IRON (FE) 8 UG/DL (50-170); TOTAL IRON BINDING CAPACITY 264 UG/DL (250-425)
[2024-05-23 11:23] LABS: FERRITIN 26.6 NG/ML (7.3-270.7); FOLATE 17.44 NG/ML (>5.4); VITAMIN B12 LEVEL 990 PG/ML (211-911)
[2024-05-23] MEDS ORDERED: PROHANCE 279.3MG/ML 15ML VIAL ONE (19:14)
[2024-05-24] VITALS: BP 141/65; TEMP 98.6; O2SAT 94
[2024-05-24 04:00] VITALS: BP 142/63; TEMP 98.6; O2SAT 95
[2024-05-24 06:17] LABS: BASO % 0.4 % (0.0-1.0); EOS # 0.2 10^3/uL (0.0-0.5); EOS % 2.5 % (0.0-3.0); HEMATOCRIT 30.2 % (36.0-47.0); HEMOGLOBIN 9.7 g/dl (12.0-15.5); LYMPH # 0.6 10^3/uL (1.5-5.0); LYMPH % 6.1 % (24.0-44.0); MEAN CORPUSCULAR HEMOGLOBIN 31.3 pg (27.0-33.0); MEAN CORPUSCULAR HGB CONC 32.1 g/dl (32.0-36.5); MEAN CORPUSCULAR VOLUME 97.4 fl (80.0-96.0); MONO % 10.7 % (2.0-8.0); NEUTROPHILS # 7.1 10^3/uL (1.5-8.5); NEUTROPHILS % 79.3 % (36.0-66.0); PLATELET COUNT, AUTOMATED 293 10^3/uL (150-450)
[2024-05-24 06:33] LABS: ALBUMIN 2.3 G/DL (3.2-5.2); ALKALINE PHOSPHATASE 111 U/L (35-104); ALT/SGPT 16 U/L (7.0-40); AST/SGOT 17 U/L (<34); BILIRUBIN,TOTAL 0.8 MG/DL (0.3-1.2); BLOOD UREA NITROGEN 13 MG/DL (9-23); C REACTIVE PROTEIN QUANTITATIV 7.18 MG/DL (<1.0); CALCIUM LEVEL 8.1 MG/DL (8.3-10.6); CARBON DIOXIDE LEVEL 23 MMOL/L (20-31); CHLORIDE LEVEL 106 MMOL/L (98-107); CREATININE FOR GFR 0.63 MG/DL (0.55-1.30); GLOMERULAR FILTRATION RATE > 60.0 (>39); GLUCOSE, FASTING 180 MG/DL (74-106); MAGNESIUM LEVEL 1.6 MG/DL (1.8-2.4); POTASSIUM SERUM 4.3 MMOL/L (3.5-5.1); SODIUM LEVEL 138 MMOL/L (136-145); TOTAL PROTEIN 6.8 G/DL (5.7-8.2)
[2024-05-24 06:34] LABS: PREALBUMIN 9.2 MG/DL (10.0-40.0)
[2024-05-24 08:55] VITALS: BP 147/65; TEMP 98.1; O2SAT 97
[2024-05-24 10:34] LABS: HEPATITIS B SURFACE ANTIGEN NEGATIVE (NEGATIVE)
[2024-05-24 10:55] LABS: HEPATITIS B CORE ANTIBODY IGM NEGATIVE (NEGATIVE); HEPATITIS C VIRUS ABY INDEX 0.03 INDEX (<0.8)
[2024-05-24 12:00] VITALS: BP 118/49; TEMP 97.7; O2SAT 96
[2024-05-24] MEDS: MAG SULF 1GM/100ML (MAG RUN) 1 GM in IV 1 EA IV SCH (12:18)
[2024-05-24 20:57] VITALS: BP 130/61; TEMP 97.9; O2SAT 99
[2024-05-25] VITALS: BP 102/63; TEMP 98.2; O2SAT 97
[2024-05-25 04:47] VITALS: BP 128/64; TEMP 98.6; O2SAT 96
[2024-05-25 06:17] LABS: HEMATOCRIT 30.4 % (36.0-47.0); HEMOGLOBIN 9.6 g/dl (12.0-15.5); MEAN CORPUSCULAR HEMOGLOBIN 30.8 pg (27.0-33.0); MEAN CORPUSCULAR HGB CONC 31.6 g/dl (32.0-36.5); MEAN CORPUSCULAR VOLUME 97.4 fl (80.0-96.0); PLATELET COUNT, AUTOMATED 285 10^3/uL (150-450); RED BLOOD COUNT 3.12 10^6/uL (4.00-5.40); WHITE BLOOD COUNT 8.7 10^3/uL (4.0-10.0)
[2024-05-25 06:39] LABS: BLOOD UREA NITROGEN 13 MG/DL (9-23); C REACTIVE PROTEIN QUANTITATIV 6.02 MG/DL (<1.0); CALCIUM LEVEL 8.2 MG/DL (8.3-10.6); CARBON DIOXIDE LEVEL 24 MMOL/L (20-31); CHLORIDE LEVEL 107 MMOL/L (98-107); CREATININE FOR GFR 0.73 MG/DL (0.55-1.30); GLOMERULAR FILTRATION RATE > 60.0 (>39); GLUCOSE, FASTING 149 MG/DL (74-106); MAGNESIUM LEVEL 1.7 MG/DL (1.8-2.4); SODIUM LEVEL 138 MMOL/L (136-145)
[2024-05-25] MEDS: VANCOMYCIN HCL 1,500 MG, VIAL MATE ADAPTER 1 EACH in NS 500 ML IV SCH (08:22)
[2024-05-25 08:30] VITALS: BP 130/63; TEMP 97.9; O2SAT 96
[2024-05-25 12:00] VITALS: BP 120/55; TEMP 97.7; O2SAT 97
[2024-05-25] MEDS: ACETAMINOPHEN 325 MG TAB PO SCH (13:59)
[2024-05-25] MEDS: CEFEPIME HCL 2 GM in DEXTROSE 5% (D5W) ADV/MINI-BAG 50 ML IV SCH (15:14)
[2024-05-25 16:30] VITALS: BP 121/55; TEMP 97.9; O2SAT 96
[2024-05-25 20:26] VITALS: BP 140/59; TEMP 98.1; O2SAT 96
[2024-05-26 04:14] VITALS: BP 143/56; TEMP 98.2; O2SAT 96
[2024-05-26 08:00] VITALS: BP 143/57; TEMP 98.1; O2SAT 97
[2024-05-26 08:08] LABS: HEMATOCRIT 32.1 % (36.0-47.0); HEMOGLOBIN 10.4 g/dl (12.0-15.5); MEAN CORPUSCULAR HEMOGLOBIN 31.3 pg (27.0-33.0); MEAN CORPUSCULAR HGB CONC 32.4 g/dl (32.0-36.5); MEAN CORPUSCULAR VOLUME 96.7 fl (80.0-96.0); PLATELET COUNT, AUTOMATED 269 10^3/uL (150-450); RED BLOOD COUNT 3.32 10^6/uL (4.00-5.40); WHITE BLOOD COUNT 7.8 10^3/uL (4.0-10.0)
[2024-05-26 08:30] LABS: BLOOD UREA NITROGEN 13 MG/DL (9-23); C REACTIVE PROTEIN QUANTITATIV 5.99 MG/DL (<1.0); CALCIUM LEVEL 8.2 MG/DL (8.3-10.6); CARBON DIOXIDE LEVEL 24 MMOL/L (20-31); CHLORIDE LEVEL 105 MMOL/L (98-107); CREATININE FOR GFR 0.63 MG/DL (0.55-1.30); GLOMERULAR FILTRATION RATE > 60.0 (>39); GLUCOSE, FASTING 195 MG/DL (74-106); MAGNESIUM LEVEL 1.5 MG/DL (1.8-2.4); POTASSIUM SERUM 4.2 MMOL/L (3.5-5.1); SODIUM LEVEL 137 MMOL/L (136-145)
[2024-05-26 12:00] VITALS: BP 117/48; TEMP 98.1; O2SAT 93
[2024-05-26 16:00] VITALS: BP 118/48; TEMP 97.3; O2SAT 95
[2024-05-26] MEDS: MAG SULF 1GM/100ML (MAG RUN) 1 GM in IV 1 EA IV SCH (16:23)
[2024-05-26] MEDS: GABAPENTIN 100 MG CAP PO SCH (16:24)
[2024-05-26] MEDS: PERCOCET 5MG/325MG TAB PO PRN (21:17)
[2024-05-27] VITALS (7 sets, daily range): BP systolic 107–120; BP diastolic 51–61; TEMP 97.5–98.1; O2SAT 95–100
[2024-05-27] MEDS: HYDROMORPHONE HCL 0.5 MG/ 0.5 ML SYRINGE IV ONE (00:17)
[2024-05-27 08:36] LABS: HEMATOCRIT 30.9 % (36.0-47.0); HEMOGLOBIN 9.8 g/dl (12.0-15.5); MEAN CORPUSCULAR HEMOGLOBIN 30.9 pg (27.0-33.0); MEAN CORPUSCULAR HGB CONC 31.7 g/dl (32.0-36.5); MEAN CORPUSCULAR VOLUME 97.5 fl (80.0-96.0); PLATELET COUNT, AUTOMATED 246 10^3/uL (150-450); RED BLOOD COUNT 3.17 10^6/uL (4.00-5.40); WHITE BLOOD COUNT 7.5 10^3/uL (4.0-10.0)
[2024-05-27 09:25] LABS: BLOOD UREA NITROGEN 15 MG/DL (9-23); C REACTIVE PROTEIN QUANTITATIV 6.07 MG/DL (<1.0); CARBON DIOXIDE LEVEL 25 MMOL/L (20-31); CHLORIDE LEVEL 105 MMOL/L (98-107); CREATININE FOR GFR 0.75 MG/DL (0.55-1.30); GLOMERULAR FILTRATION RATE > 60.0 (>39); GLUCOSE, FASTING 90 MG/DL (74-106); MAGNESIUM LEVEL 1.8 MG/DL (1.8-2.4); POTASSIUM SERUM 4.6 MMOL/L (3.5-5.1); SODIUM LEVEL 134 MMOL/L (136-145)
[2024-05-27] MEDS: PERCOCET 5MG/325MG TAB PO ONE (11:51)
[2024-05-27] MEDS: LIDOCAINE 5% (LIDODERM) PATCH TD SCH (11:58)
[2024-05-28 03:51] VITALS: BP 114/52; TEMP 97.5; O2SAT 96
[2024-05-28 08:00] VITALS: BP 116/52; TEMP 97.3; O2SAT 97
[2024-05-28] MEDS: PERCOCET 5MG/325MG TAB PO ONE (08:44)
[2024-05-28 08:49] LABS: BASO % 0.4 % (0.0-1.0); EOS # 0.3 10^3/uL (0.0-0.5); EOS % 3.4 % (0.0-3.0); HEMATOCRIT 31.2 % (36.0-47.0); HEMOGLOBIN 9.8 g/dl (12.0-15.5); LYMPH # 0.7 10^3/uL (1.5-5.0); LYMPH % 8.6 % (24.0-44.0); MEAN CORPUSCULAR HEMOGLOBIN 30.5 pg (27.0-33.0); MEAN CORPUSCULAR HGB CONC 31.4 g/dl (32.0-36.5); MEAN CORPUSCULAR VOLUME 97.2 fl (80.0-96.0); NEUTROPHILS # 6.3 10^3/uL (1.5-8.5); NEUTROPHILS % 74.9 % (36.0-66.0); PLATELET COUNT, AUTOMATED 248 10^3/uL (150-450); RED BLOOD COUNT 3.21 10^6/uL (4.00-5.40); WHITE BLOOD COUNT 8.5 10^3/uL (4.0-10.0)
[2024-05-28 09:10] LABS: ERYTHROCYTE SEDIMENTATION RATE 82 mm/hr (0-30)
[2024-05-28 09:12] LABS: BLOOD UREA NITROGEN 20 MG/DL (9-23); CALCIUM LEVEL 8.3 MG/DL (8.3-10.6); CARBON DIOXIDE LEVEL 25 MMOL/L (20-31); CHLORIDE LEVEL 104 MMOL/L (98-107); CREATININE FOR GFR 0.89 MG/DL (0.55-1.30); GLOMERULAR FILTRATION RATE > 60.0 (>39); GLUCOSE, FASTING 82 MG/DL (74-106); MAGNESIUM LEVEL 1.8 MG/DL (1.8-2.4); POTASSIUM SERUM 3.7 MMOL/L (3.5-5.1); SODIUM LEVEL 137 MMOL/L (136-145)
[2024-05-28 09:12] LABS: C REACTIVE PROTEIN QUANTITATIV 4.81 MG/DL (<1.0)
[2024-05-28 09:18] LABS: PROCALCITONIN 2.55 ng/ml
[2024-05-28 12:00] VITALS: BP 130/59; TEMP 97.3; O2SAT 96
[2024-05-28] MEDS: VANCOMYCIN HCL 1,000 MG, VIAL MATE ADAPTER 1 EACH in NS 250 ML IV SCH (12:05)
[2024-05-28] MEDS ORDERED: BISACODYL 5MG TAB PO PRN (14:45)
[2024-05-28] MEDS: PERCOCET 5MG/325MG TAB PO SCH (14:57)
[2024-05-28 16:00] VITALS: BP 130/9; TEMP 97.5; O2SAT 94
[2024-05-28 19:57] VITALS: BP 125/53; TEMP 97.3; O2SAT 92
[2024-05-29] MEDS: PERCOCET 5MG/325MG TAB PO SCH (00:08)
[2024-05-29 01:39] VITALS: BP 122/53; TEMP 97.9; O2SAT 95
[2024-05-29 04:00] VITALS: BP 120/53; TEMP 97.9; O2SAT 95
[2024-05-29 05:55] LABS: HEMATOCRIT 31.8 % (36.0-47.0); HEMOGLOBIN 9.9 g/dl (12.0-15.5); MEAN CORPUSCULAR HEMOGLOBIN 30.7 pg (27.0-33.0); MEAN CORPUSCULAR HGB CONC 31.1 g/dl (32.0-36.5); MEAN CORPUSCULAR VOLUME 98.5 fl (80.0-96.0); PLATELET COUNT, AUTOMATED 235 10^3/uL (150-450); RED BLOOD COUNT 3.23 10^6/uL (4.00-5.40); WHITE BLOOD COUNT 7.4 10^3/uL (4.0-10.0)
[2024-05-29 06:07] LABS: CALCIUM LEVEL 7.8 MG/DL (8.3-10.6); CREATININE FOR GFR 1.03 MG/DL (0.55-1.30); GLOMERULAR FILTRATION RATE 55.5 (>39); MAGNESIUM LEVEL 1.8 MG/DL (1.8-2.4); POTASSIUM SERUM 3.8 MMOL/L (3.5-5.1)
[2024-05-29 08:00] VITALS: BP 118/53; TEMP 97.7; O2SAT 98
[2024-05-29 12:00] VITALS: BP 120/54; TEMP 98.1; O2SAT 96
[2024-05-29] MEDS: LevoFLOXacin 750 MG TABLET PO SCH (13:50)
[2024-05-29 16:00] VITALS: BP 116/53; TEMP 97.9; O2SAT 95
[2024-05-29] MEDS ORDERED: PROHANCE 279.3MG/ML 15ML VIAL As Ordered ONE (18:02)
[2024-05-29] MEDS ORDERED: CEFEPIME HCL 2 GM in DEXTROSE 5% (D5W) ADV/MINI-BAG 50 ML IV SCH (19:00)
[2024-05-29] MEDS: SENOKOT S TAB PO PRN (21:23)
[2024-05-29] MEDS: LINEZOLID 600MG TABLET (ZYVOX) PO SCH (21:23)
[2024-05-29] MEDS: PERCOCET 5MG/325MG TAB PO ONE (23:43)
[2024-05-30 04:00] VITALS: BP 116/52; TEMP 97.3; O2SAT 95
[2024-05-30 05:51] LABS: HEMATOCRIT 33.9 % (36.0-47.0); HEMOGLOBIN 10.5 g/dl (12.0-15.5); MEAN CORPUSCULAR HEMOGLOBIN 30.3 pg (27.0-33.0); MEAN CORPUSCULAR VOLUME 97.7 fl (80.0-96.0); PLATELET COUNT, AUTOMATED 219 10^3/uL (150-450); RED BLOOD COUNT 3.47 10^6/uL (4.00-5.40); WHITE BLOOD COUNT 7.7 10^3/uL (4.0-10.0)
[2024-05-30 06:16] LABS: CALCIUM LEVEL 8.6 MG/DL (8.3-10.6); CREATININE FOR GFR 1.04 MG/DL (0.55-1.30); GLOMERULAR FILTRATION RATE 54.8 (>39); MAGNESIUM LEVEL 1.7 MG/DL (1.8-2.4); POTASSIUM SERUM 3.7 MMOL/L (3.5-5.1)
[2024-05-30] MEDS: LIDOCAINE 5% (LIDODERM) PATCH TD SCH (09:00)
[2024-05-30] MEDS ORDERED: ZYVO1TAB PO (14:14)
[2024-05-30] MEDS ORDERED: LEVO75TAB PO (14:14)
[2024-05-30] MEDS ORDERED: GABA-1171 PO (14:16)
[2024-05-30] MEDS ORDERED: BACI1CAP4 PO (14:17)
[2024-05-30] MEDS ORDERED: OXYC1TAB23 PO (14:21)
[2024-05-30] MEDS ORDERED: NITROGLYCERIN 0.4MG SUBL TABLET SL PRN (16:50)
[2024-05-30] MEDS: MOM 30ML SUSPENSION UDC PO PRN (23:42)
[2024-05-31 04:23] VITALS: BP 115/68; TEMP 97.3; O2SAT 93
[2024-05-31 05:55] LABS: HEMATOCRIT 31.5 % (36.0-47.0); HEMOGLOBIN 9.8 g/dl (12.0-15.5); MEAN CORPUSCULAR HEMOGLOBIN 30.4 pg (27.0-33.0); MEAN CORPUSCULAR HGB CONC 31.1 g/dl (32.0-36.5); MEAN CORPUSCULAR VOLUME 97.8 fl (80.0-96.0); PLATELET COUNT, AUTOMATED 236 10^3/uL (150-450); RED BLOOD COUNT 3.22 10^6/uL (4.00-5.40); WHITE BLOOD COUNT 7.5 10^3/uL (4.0-10.0)
[2024-05-31 06:21] LABS: CREATININE FOR GFR 1.36 MG/DL (0.55-1.30); GLOMERULAR FILTRATION RATE 40.2 (>39); POTASSIUM SERUM 3.8 MMOL/L (3.5-5.1)
[2024-05-31 08:47] VITALS: BP 116/68; TEMP 97.3
[2024-06-01 04:00] VITALS: BP 108/55; TEMP 97.3; O2SAT 95
[2024-06-01 20:14] LABS: HEMATOCRIT 30.3 % (36.0-47.0); HEMOGLOBIN 9.4 g/dl (12.0-15.5); MEAN CORPUSCULAR HEMOGLOBIN 30.3 pg (27.0-33.0); MEAN CORPUSCULAR VOLUME 97.7 fl (80.0-96.0); PLATELET COUNT, AUTOMATED 216 10^3/uL (150-450); WHITE BLOOD COUNT 7.9 10^3/uL (4.0-10.0)
[2024-06-01 20:40] LABS: CALCIUM LEVEL 7.8 MG/DL (8.3-10.6); CREATININE FOR GFR 1.31 MG/DL (0.55-1.30); POTASSIUM SERUM 4.1 MMOL/L (3.5-5.1)
[2024-06-02 03:58] VITALS: BP 126/58; TEMP 97.3; O2SAT 95
[2024-06-02 12:00] LABS: CREATININE FOR GFR 1.13 MG/DL (0.55-1.30); GLOMERULAR FILTRATION RATE 49.8 (>39); POTASSIUM SERUM 3.9 MMOL/L (3.5-5.1)
[2024-06-02] MEDS: FERROUS SULFATE 325MG TAB PO SCH (13:36)
[2024-06-02] MEDS: NS (Normal Saline) 0.9% 1,000 ML IV SCH (13:37)
[2024-06-02] MEDS: MORPHINE 2 MG/ML 1ML VIAL IV PRN (17:06)
[2024-06-02] MEDS: oxyCODONE 5MG TAB PO PRN (18:30)
[2024-06-02 20:48] VITALS: BP 127/45; TEMP 98.1; O2SAT 96
[2024-06-03] VITALS (8 sets, daily range): BP systolic 119–139; BP diastolic 47–57; TEMP 97.3–97.9; O2SAT 92–96
[2024-06-03 06:24] LABS: BASO # 0.1 10^3/uL (0.0-0.2); BASO % 1.4 % (0.0-1.0); EOS # 0.3 10^3/uL (0.0-0.5); EOS % 4.5 % (0.0-3.0); LYMPH # 1.2 10^3/uL (1.5-5.0); LYMPH % 19.9 % (24.0-44.0); MEAN CORPUSCULAR HEMOGLOBIN 30.1 pg (27.0-33.0); MONO # 0.8 10^3/uL (0.0-0.8); MONO % 12.9 % (2.0-8.0); NEUTROPHILS # 3.5 10^3/uL (1.5-8.5); NEUTROPHILS % 60.3 % (36.0-66.0); PLATELET COUNT, AUTOMATED 195 10^3/uL (150-450); RED BLOOD COUNT 2.99 10^6/uL (4.00-5.40); WHITE BLOOD COUNT 5.8 10^3/uL (4.0-10.0)
[2024-06-03 06:53] LABS: BLOOD UREA NITROGEN 21 MG/DL (9-23); CALCIUM LEVEL 7.8 MG/DL (8.3-10.6); CARBON DIOXIDE LEVEL 28 MMOL/L (20-31); CHLORIDE LEVEL 106 MMOL/L (98-107); CREATININE FOR GFR 0.86 MG/DL (0.55-1.30); GLOMERULAR FILTRATION RATE > 60.0 (>39); GLUCOSE, FASTING 103 MG/DL (74-106); POTASSIUM SERUM 3.7 MMOL/L (3.5-5.1); SODIUM LEVEL 142 MMOL/L (136-145)
[2024-06-03] MEDS ORDERED: ACETAMINOPHEN 1000MG/100ML IV BAG As Ordered ONE (11:26)
[2024-06-03] MEDS ORDERED: ONDANSETRON 4MG 2ML VIAL As Ordered ONE (11:26)
[2024-06-03] MEDS ORDERED: fentaNYL 100 MCG/2 ML INJECTION As Ordered ONE (11:26)
[2024-06-03] MEDS ORDERED: LIDOCAINE 2% 100MG/5ML SDV (FOR ANES.) As Ordered ONE (11:26)
[2024-06-03] MEDS ORDERED: propofoL 200 MG/20 ML VIAL As Ordered ONE (11:26)
[2024-06-03] MEDS ORDERED: KETAMINE HCL 200MG/20ML VIAL As Ordered ONE (12:49)
[2024-06-03] MEDS: LIDOCAINE 1% SDV 30ML VIAL As Ordered ONE (13:02)
[2024-06-03] MEDS ORDERED: fentaNYL 100 MCG/2 ML INJECTION IV PRN (13:15)
[2024-06-03] MEDS ORDERED: ONDANSETRON 4MG 2ML VIAL IV PRN (13:15)
[2024-06-04 03:26] VITALS: BP 133/52; TEMP 97.5; O2SAT 92
[2024-06-04 05:57] LABS: BASO # 0.1 10^3/uL (0.0-0.2); BASO % 1.3 % (0.0-1.0); EOS # 0.2 10^3/uL (0.0-0.5); EOS % 3.8 % (0.0-3.0); HEMATOCRIT 29.5 % (36.0-47.0); LYMPH # 1.2 10^3/uL (1.5-5.0); LYMPH % 19.2 % (24.0-44.0); MEAN CORPUSCULAR HEMOGLOBIN 29.7 pg (27.0-33.0); MEAN CORPUSCULAR HGB CONC 30.5 g/dl (32.0-36.5); MEAN CORPUSCULAR VOLUME 97.4 fl (80.0-96.0); MONO # 0.8 10^3/uL (0.0-0.8); MONO % 12.1 % (2.0-8.0); NEUTROPHILS % 62.7 % (36.0-66.0); PLATELET COUNT, AUTOMATED 210 10^3/uL (150-450); RED BLOOD COUNT 3.03 10^6/uL (4.00-5.40); WHITE BLOOD COUNT 6.4 10^3/uL (4.0-10.0)
[2024-06-04 06:19] LABS: BLOOD UREA NITROGEN 17 MG/DL (9-23); CALCIUM LEVEL 7.9 MG/DL (8.3-10.6); CARBON DIOXIDE LEVEL 27 MMOL/L (20-31); CHLORIDE LEVEL 105 MMOL/L (98-107); CREATININE FOR GFR 0.73 MG/DL (0.55-1.30); GLOMERULAR FILTRATION RATE > 60.0 (>39); GLUCOSE, FASTING 80 MG/DL (74-106); POTASSIUM SERUM 3.7 MMOL/L (3.5-5.1); SODIUM LEVEL 141 MMOL/L (136-145)
[2024-06-04 08:00] VITALS: BP 134/53; TEMP 97.5; O2SAT 97
[2024-06-04] MEDS: HYDROMORPHONE HCL 0.5 MG/ 0.5 ML SYRINGE IV PRN (08:29)
[2024-06-04 12:18] VITALS: BP 131/60; TEMP 98.1; O2SAT 97
[2024-06-04] MEDS ORDERED: fentaNYL 100 MCG/2 ML INJECTION IV ONE (13:05)
[2024-06-04] MEDS: HYDROMORPHONE HCL 0.5 MG/ 0.5 ML SYRINGE IV STA (13:13)
[2024-06-04 16:00] VITALS: BP 119/55; TEMP 97.9; O2SAT 90
[2024-06-04 21:22] VITALS: BP 130/54; TEMP 97.5; O2SAT 90
[2024-06-05 03:28] VITALS: BP 130/54; TEMP 97.5; O2SAT 90
[2024-06-05 06:47] LABS: BASO # 0.1 10^3/uL (0.0-0.2); BASO % 1.1 % (0.0-1.0); EOS # 0.1 10^3/uL (0.0-0.5); EOS % 0.7 % (0.0-3.0); HEMOGLOBIN 9.9 g/dl (12.0-15.5); LYMPH # 1.4 10^3/uL (1.5-5.0); LYMPH % 11.8 % (24.0-44.0); MEAN CORPUSCULAR HEMOGLOBIN 30.3 pg (27.0-33.0); MEAN CORPUSCULAR HGB CONC 30.9 g/dl (32.0-36.5); MEAN CORPUSCULAR VOLUME 97.9 fl (80.0-96.0); MONO # 1.9 10^3/uL (0.0-0.8); MONO % 16.4 % (2.0-8.0); NEUTROPHILS # 8.1 10^3/uL (1.5-8.5); NEUTROPHILS % 69.4 % (36.0-66.0); PLATELET COUNT, AUTOMATED 257 10^3/uL (150-450); RED BLOOD COUNT 3.27 10^6/uL (4.00-5.40); WHITE BLOOD COUNT 11.6 10^3/uL (4.0-10.0)
[2024-06-05 06:52] LABS: BLOOD UREA NITROGEN 15 MG/DL (9-23); CALCIUM LEVEL 8.2 MG/DL (8.3-10.6); CARBON DIOXIDE LEVEL 28 MMOL/L (20-31); CHLORIDE LEVEL 103 MMOL/L (98-107); CREATININE FOR GFR 0.71 MG/DL (0.55-1.30); GLOMERULAR FILTRATION RATE > 60.0 (>39); GLUCOSE, FASTING 147 MG/DL (74-106); POTASSIUM SERUM 4.1 MMOL/L (3.5-5.1); SODIUM LEVEL 139 MMOL/L (136-145)
[2024-06-05] MEDS: ENOXAPARIN 40MG/0.4ML SYRINGE (J1650 PER 10MG) SC SCH (08:12)
[2024-06-05] MEDS: GABAPENTIN 100 MG CAP PO ONE (10:49)
[2024-06-05] MEDS: HYDROMORPHONE HCL 0.5 MG/ 0.5 ML SYRINGE IV PRN (12:34)
[2024-06-05] MEDS: ACETAMINOPHEN 500 MG TAB PO SCH (14:20)
[2024-06-05] MEDS: methocarbamoL 750 MG TAB PO SCH (15:38)
[2024-06-05] MEDS: GABAPENTIN 100 MG CAP PO SCH (15:38)
[2024-06-05 16:08] VITALS: BP 120/54; TEMP 98.1; O2SAT 92
[2024-06-05 19:05] LABS: KETONE, URINE AUTO RFX TRACE mg/dL (NEGATIVE); MUCUS, URINE RFX SMALL (NEGATIVE); NITRITE, URINE AUTO RFX NEGATIVE (NEGATIVE); RBC, URINE AUTO RFX 12 /HPF (0-3); SQUAM EPITHELIAL CELL UR AURFX 1 /HPF (0-6); YEAST LIKE CELL URINE AUTO RFX LARGE
[2024-06-05 19:09] LABS: LEUKOCYTE ESTERASE UR AUTO RFX 1+ (NEGATIVE); WBC, URINE AUTO RFX 51 /HPF (0-3)
[2024-06-05 20:14] VITALS: BP 121/55; TEMP 97.3; O2SAT 93
[2024-06-06 03:48] VITALS: BP 118/51; TEMP 97.9; O2SAT 94
[2024-06-06 06:06] LABS: BASO # 0.1 10^3/uL (0.0-0.2); BASO % 0.7 % (0.0-1.0); EOS # 0.2 10^3/uL (0.0-0.5); EOS % 1.9 % (0.0-3.0); HEMATOCRIT 28.6 % (36.0-47.0); HEMOGLOBIN 8.8 g/dl (12.0-15.5); LYMPH # 1.4 10^3/uL (1.5-5.0); LYMPH % 12.6 % (24.0-44.0); MEAN CORPUSCULAR HEMOGLOBIN 30.3 pg (27.0-33.0); MEAN CORPUSCULAR HGB CONC 30.8 g/dl (32.0-36.5); MEAN CORPUSCULAR VOLUME 98.6 fl (80.0-96.0); MONO # 1.9 10^3/uL (0.0-0.8); MONO % 17.5 % (2.0-8.0); NEUTROPHILS # 7.1 10^3/uL (1.5-8.5); NEUTROPHILS % 66.6 % (36.0-66.0); PLATELET COUNT, AUTOMATED 197 10^3/uL (150-450); WHITE BLOOD COUNT 10.7 10^3/uL (4.0-10.0)
[2024-06-06 06:33] LABS: BLOOD UREA NITROGEN 16 MG/DL (9-23); CALCIUM LEVEL 7.8 MG/DL (8.3-10.6); CARBON DIOXIDE LEVEL 26 MMOL/L (20-31); CHLORIDE LEVEL 103 MMOL/L (98-107); CREATININE FOR GFR 0.66 MG/DL (0.55-1.30); GLOMERULAR FILTRATION RATE > 60.0 (>39); GLUCOSE, FASTING 186 MG/DL (74-106); POTASSIUM SERUM 4.1 MMOL/L (3.5-5.1); SODIUM LEVEL 138 MMOL/L (136-145)
[2024-06-06] MEDS: cefTRIAXone SOD 1 GM in DEXTROSE 5% (D5W) ADV/MINI-BAG 50 ML IV SCH (09:43)
[2024-06-06] MEDS: TORSEMIDE 10 MG TABLET PO SCH (09:43)
[2024-06-06 12:00] VITALS: BP 125/89; TEMP 97.5; O2SAT 94
[2024-06-06 20:44] VITALS: BP 126/87; TEMP 98.1; O2SAT 97
[2024-06-07 03:28] VITALS: BP 121/56; TEMP 97.5; O2SAT 98
[2024-06-07 05:22] LABS: BASO # 0.1 10^3/uL (0.0-0.2); BASO % 0.9 % (0.0-1.0); EOS # 0.3 10^3/uL (0.0-0.5); EOS % 4.2 % (0.0-3.0); HEMATOCRIT 29.3 % (36.0-47.0); HEMOGLOBIN 8.9 g/dl (12.0-15.5); LYMPH # 0.4 10^3/uL (1.5-5.0); LYMPH % 5.5 % (24.0-44.0); MEAN CORPUSCULAR HEMOGLOBIN 29.6 pg (27.0-33.0); MEAN CORPUSCULAR HGB CONC 30.4 g/dl (32.0-36.5); MEAN CORPUSCULAR VOLUME 97.3 fl (80.0-96.0); NEUTROPHILS # 6.1 10^3/uL (1.5-8.5); NEUTROPHILS % 75.5 % (36.0-66.0); PLATELET COUNT, AUTOMATED 191 10^3/uL (150-450); RED BLOOD COUNT 3.01 10^6/uL (4.00-5.40)
[2024-06-07 05:39] LABS: BLOOD UREA NITROGEN 17 MG/DL (9-23); CALCIUM LEVEL 7.9 MG/DL (8.3-10.6); CARBON DIOXIDE LEVEL 26 MMOL/L (20-31); CHLORIDE LEVEL 105 MMOL/L (98-107); CREATININE FOR GFR 0.79 MG/DL (0.55-1.30); GLOMERULAR FILTRATION RATE > 60.0 (>39); GLUCOSE, FASTING 113 MG/DL (74-106); POTASSIUM SERUM 4.2 MMOL/L (3.5-5.1); SODIUM LEVEL 140 MMOL/L (136-145)
[2024-06-07] MEDS: oxyCODONE 5MG TAB PO PRN (10:44)
[2024-06-07 12:00] VITALS: BP 116/54; TEMP 97.3; O2SAT 93
[2024-06-07] MEDS: HYDROMORPHONE HCL 0.5 MG/ 0.5 ML SYRINGE IV PRN (14:58)
[2024-06-08 04:00] VITALS: BP 120/72; TEMP 98.8; O2SAT 95
[2024-06-08] MEDS: oxyCODONE 5MG TAB PO PRN (12:18)
[2024-06-09 04:00] VITALS: BP 121/59; TEMP 97.3; O2SAT 95
[2024-06-09] MEDS ORDERED: AMLO1TAB24 PO (07:58)
[2024-06-09] MEDS ORDERED: GABA-1171 PO (08:05)
[2024-06-09] MEDS ORDERED: METH-1165 PO (08:05)
[2024-06-09] MEDS ORDERED: BISAC5TA PO (08:07)
[2024-06-09] MEDS ORDERED: FERR1TAB8 PO (08:07)
[2024-06-09 09:43] VITALS: BP 123/58
[2024-06-09 12:03] VITALS: O2SAT 96
== END 2024-06-09 14:40 | DRG 256 ==
LOC: M ED 14:23 → M ED INP 20:41 → M MSPAV 05-23 01:23
PROVIDERS: ADMIT Student in an Organized Health Care Education/Training Program; ATTEND Internal Medicine
PROC: 30233N1 Transfusion of Nonautologous Red Blood Cells into Peripheral Vein, Percutaneous Approach (ICD-10-PCS; 2024-05-23)
PROC: 0Y6U0Z0 Detachment at Left 3rd Toe, Complete, Open Approach (ICD-10-PCS; 2024-06-03)
PROC: 0Y6S0Z0 Detachment at Left 2nd Toe, Complete, Open Approach (ICD-10-PCS; principal; 2024-06-03 12:30)
DX: E11.52 Type 2 diabetes mellitus with diabetic peripheral angiopathy with gangrene (principal); L03.116 Cellulitis of left lower limb; N17.9 Acute kidney failure, unspecified; K76.6 Portal hypertension; Z66 Do not resuscitate; E11.621 Type 2 diabetes mellitus with foot ulcer; E11.42 Type 2 diabetes mellitus with diabetic polyneuropathy; I10 Essential (primary) hypertension; K21.9 Gastro-esophageal reflux disease without esophagitis; I25.10 Atherosclerotic heart disease of native coronary artery without angina pectoris; E78.5 Hyperlipidemia, unspecified; I25.2 Old myocardial infarction; E83.42 Hypomagnesemia; D64.9 Anemia, unspecified; K74.60 Unspecified cirrhosis of liver; J45.909 Unspecified asthma, uncomplicated; L97.529 Non-pressure chronic ulcer of other part of left foot with unspecified severity; E11.69 Type 2 diabetes mellitus with other specified complication; I73.9 Peripheral vascular disease, unspecified; Z95.5 Presence of coronary angioplasty implant and graft; Z90.79 Acquired absence of other genital organ(s); Z79.82 Long term (current) use of aspirin; Z79.84 Long term (current) use of oral hypoglycemic drugs; Z79.4 Long term (current) use of insulin; Z79.899 Other long term (current) drug therapy; Z88.0 Allergy status to penicillin; Z88.8 Allergy status to other drugs, medicaments and biological substances

== ENCOUNTER → 2024-06-10 | Outpatient (REF) | payer MEDICARE ==
[~2024-06-10] MED LIST changes: +AMLO1TAB24 PO; +ASPI81TA26 PO; +BACI1CAP4 PO; +BISAC5TA PO; +FERR1TAB8 PO; +FURO20TA2 PO; +FURO40TA2 PO; +GABA-1171 PO; +LANTINJ4 INJ; +LEVO75TAB PO; +METH-1165 PO; +OXYC1TAB23 PO; +PROP40TA62 PO; +SPIR-10 PO; +ZYVO1TAB PO
== END ==
PROVIDERS: ATTEND Physician Assistant
DX: R14.0 Abdominal distension (gaseous) (principal); K59.00 Constipation, unspecified; Z96.9 Presence of functional implant, unspecified; Z87.81 Personal history of (healed) traumatic fracture

== ENCOUNTER → 2024-06-10 | Outpatient (REF) ==
[2024-06-10 15:48] LABS: HEMATOCRIT 30.3 % (36.0-47.0); HEMOGLOBIN 9.2 g/dl (12.0-15.5); MEAN CORPUSCULAR HEMOGLOBIN 29.9 pg (27.0-33.0); MEAN CORPUSCULAR HGB CONC 30.4 g/dl (32.0-36.5); MEAN CORPUSCULAR VOLUME 98.4 fl (80.0-96.0); PLATELET COUNT, AUTOMATED 368 10^3/uL (150-450); RED BLOOD COUNT 3.08 10^6/uL (4.00-5.40); WHITE BLOOD COUNT 9.5 10^3/uL (4.0-10.0)
[2024-06-10 16:23] LABS: BLOOD UREA NITROGEN 19 MG/DL (9-23); CALCIUM LEVEL 8.1 MG/DL (8.3-10.6); CARBON DIOXIDE LEVEL 28 MMOL/L (20-31); CHLORIDE LEVEL 104 MMOL/L (98-107); CREATININE FOR GFR 0.86 MG/DL (0.55-1.30); GLOMERULAR FILTRATION RATE > 60.0 (>39); GLUCOSE, FASTING 53 MG/DL (74-106); SODIUM LEVEL 140 MMOL/L (136-145)
== END ==
PROVIDERS: ATTEND Internal Medicine
DX: Z02.2 Encounter for examination for admission to residential institution (principal); Z79.899 Other long term (current) drug therapy

== ENCOUNTER 2024-06-12 09:40 | Inpatient (IN) | payer MEDICARE ==
[~2024-06-12] VITALS: Ht 157.5 cm; Wt 81.2 kg
[~2024-06-12 09:40] MED LIST changes: -FURO20TA2 PO; -FURO40TA2 PO; -PROP40TA62 PO; -SPIR-10 PO
[2024-06-12 12:12] VITALS: BP 154/69; TEMP 97.8; O2SAT 97
[2024-06-12] MEDS ORDERED: CEFEPIME HCL 2 GM in DEXTROSE 5% (D5W) ADV/MINI-BAG 50 ML IV SCH (12:25)
[2024-06-12] MEDS ORDERED: VANCOMYCIN HCL 1,000 MG, VIAL MATE ADAPTER 1 EACH in NS 250 ML IV SCH (12:25)
[2024-06-12] MEDS ORDERED: GLUCAGON INJ 1MG VIAL SC PRN (12:30)
[2024-06-12] MEDS ORDERED: GLUCOSE 4 GM CHEW PO PRN (12:30)
[2024-06-12] MEDS ORDERED: DEXTROSE 50% 50ML SYRINGE IV PRN (12:30)
[2024-06-12 13:11] LABS: BASO # 0.1 10^3/uL (0.0-0.2); BASO % 0.8 % (0.0-1.0); EOS # 0.3 10^3/uL (0.0-0.5); EOS % 2.6 % (0.0-3.0); HEMATOCRIT 29.3 % (36.0-47.0); HEMOGLOBIN 9.2 g/dl (12.0-15.5); LYMPH # 1.6 10^3/uL (1.5-5.0); LYMPH % 14.9 % (24.0-44.0); MEAN CORPUSCULAR HEMOGLOBIN 30.5 pg (27.0-33.0); MEAN CORPUSCULAR HGB CONC 31.4 g/dl (32.0-36.5); MONO # 1.3 10^3/uL (0.0-0.8); NEUTROPHILS # 7.2 10^3/uL (1.5-8.5); NEUTROPHILS % 68.9 % (36.0-66.0); PLATELET COUNT, AUTOMATED 420 10^3/uL (150-450); RED BLOOD COUNT 3.02 10^6/uL (4.00-5.40); WHITE BLOOD COUNT 10.5 10^3/uL (4.0-10.0)
[2024-06-12 13:32] LABS: INR 1.1; PROTHROMBIN TIME 14.5 SECONDS (12.5-14.5)
[2024-06-12] MEDS ORDERED: MIRALAX *UNIT DOSE* 17GM PACKET PO PRN (13:35)
[2024-06-12] MEDS: INSULIN LISPRO (NovoLOG) PER UNIT SC SCH ×2 (13:42→20:15)
[2024-06-12] MEDS: DOCUSATE SODIUM 100MG CAPSULE PO SCH (13:42)
[2024-06-12 13:45] LABS: ALBUMIN 2.1 G/DL (3.2-5.2); ALKALINE PHOSPHATASE 142 U/L (35-104); ALT/SGPT 14 U/L (7.0-40); AST/SGOT 24 U/L (<34); BILIRUBIN,TOTAL 0.5 MG/DL (0.3-1.2); BLOOD UREA NITROGEN 17 MG/DL (9-23); CALCIUM LEVEL 8.7 MG/DL (8.3-10.6); CARBON DIOXIDE LEVEL 28 MMOL/L (20-31); CHLORIDE LEVEL 105 MMOL/L (98-107); CREATININE FOR GFR 0.71 MG/DL (0.55-1.30); GLOMERULAR FILTRATION RATE > 60.0 (>39); GLUCOSE, FASTING 65 MG/DL (74-106); SODIUM LEVEL 141 MMOL/L (136-145); TOTAL PROTEIN 7.7 G/DL (5.7-8.2)
[2024-06-12] MEDS: PERCOCET 5MG/325MG TAB PO PRN ×2 (13:48→17:25)
[2024-06-12 13:52] LABS: PROCALCITONIN 0.17 ng/ml
[2024-06-12 16:30] VITALS: BP 160/67; TEMP 97.7; O2SAT 97
[2024-06-12] MEDS ORDERED: GABA-1171 PO (16:52)
[2024-06-12] MEDS ORDERED: SPIR-10 PO (16:52)
[2024-06-12] MEDS ORDERED: FURO40TA2 PO (16:52)
[2024-06-12] MEDS ORDERED: FURO20TA2 PO (16:52)
[2024-06-12] MEDS ORDERED: FERR1TAB8 PO (16:52)
[2024-06-12] MEDS ORDERED: AMLO1TAB24 PO (16:52)
[2024-06-12] MEDS ORDERED: METH-1165 PO (16:52)
[2024-06-12] MEDS ORDERED: TORS10TA3 PO (16:52)
[2024-06-12] MEDS ORDERED: PROP40TA62 PO (16:52)
[2024-06-12] MEDS ORDERED: HOME MED LIST COMPLETE! XX SCH (16:55)
[2024-06-12] MEDS ORDERED: BISACODYL 5MG TAB PO PRN (18:15)
[2024-06-12] MEDS ORDERED: NITROGLYCERIN 0.4MG SUBL TABLET SL PRN (18:15)
[2024-06-12 19:36] VITALS: BP 135/63; TEMP 98.1; O2SAT 97
[2024-06-12] MEDS: GABAPENTIN 100 MG CAP PO SCH (20:59)
[2024-06-12] MEDS: methocarbamoL 750 MG TAB PO SCH (20:59)
[2024-06-12] MEDS: LEVEMIR (INSULIN DETEMIR) 1 UNITS/0.01ML SC SCH (20:59)
[2024-06-12] MEDS: SPIRONOLACTONE 25 MG TAB PO SCH (21:00)
[2024-06-12] MEDS ORDERED: LEVEMIR (INSULIN DETEMIR) 1 UNITS/0.01ML SC SCH (21:00)
[2024-06-12] MEDS: diphenhydrAMINE 25MG CAP PO ONE (22:30)
[2024-06-12 23:47] VITALS: BP 130/60; TEMP 98.1; O2SAT 94
[2024-06-13 03:17] VITALS: BP 140/63; TEMP 98; O2SAT 94
[2024-06-13 06:21] LABS: HEMATOCRIT 28.1 % (36.0-47.0); HEMOGLOBIN 8.9 g/dl (12.0-15.5); MEAN CORPUSCULAR HEMOGLOBIN 29.9 pg (27.0-33.0); MEAN CORPUSCULAR HGB CONC 31.7 g/dl (32.0-36.5); MEAN CORPUSCULAR VOLUME 94.3 fl (80.0-96.0); PLATELET COUNT, AUTOMATED 360 10^3/uL (150-450); RED BLOOD COUNT 2.98 10^6/uL (4.00-5.40); WHITE BLOOD COUNT 8.2 10^3/uL (4.0-10.0)
[2024-06-13 06:54] LABS: ALBUMIN 1.9 G/DL (3.2-5.2); ALKALINE PHOSPHATASE 127 U/L (35-104); ALT/SGPT 11 U/L (7.0-40); AST/SGOT 20 U/L (<34); BILIRUBIN,TOTAL 0.4 MG/DL (0.3-1.2); BLOOD UREA NITROGEN 16 MG/DL (9-23); CALCIUM LEVEL 8.3 MG/DL (8.3-10.6); CARBON DIOXIDE LEVEL 31 MMOL/L (20-31); CHLORIDE LEVEL 99 MMOL/L (98-107); CREATININE FOR GFR 0.72 MG/DL (0.55-1.30); GLOMERULAR FILTRATION RATE > 60.0 (>39); GLUCOSE, FASTING 79 MG/DL (74-106); SODIUM LEVEL 140 MMOL/L (136-145); TOTAL PROTEIN 7.4 G/DL (5.7-8.2)
[2024-06-13 07:46] VITALS: BP 147/65; TEMP 98; O2SAT 95
[2024-06-13] MEDS ORDERED: MEPERIDINE 25 MG/ML 1ML VIAL IV PRN (08:25)
[2024-06-13] MEDS ORDERED: HYDROMORPHONE HCL 0.5 MG/ 0.5 ML SYRINGE IV PRN (08:25)
[2024-06-13] MEDS ORDERED: oxyCODONE 5MG TAB PO PRN (08:25)
[2024-06-13] MEDS ORDERED: ONDANSETRON 4MG 2ML VIAL IV PRN (08:25)
[2024-06-13] MEDS: LIDOCAINE 1% MDV 20ML VIAL As Ordered ONE (09:39)
[2024-06-13] MEDS: ATORVASTATIN 20 MG TAB PO SCH (10:29)
[2024-06-13] MEDS: VITAMIN D 1,000 INTERNATIONAL UNITS TABLET PO SCH (10:29)
[2024-06-13] MEDS: PROPRANOLOL 20 MG TAB PO SCH (10:29)
[2024-06-13] MEDS: FERROUS SULFATE 325MG TAB PO SCH (10:30)
[2024-06-13] MEDS: TORSEMIDE 10 MG TABLET PO SCH (10:30)
[2024-06-13] MEDS: FUROSEMIDE 20 MG TAB PO SCH (10:30)
[2024-06-13] MEDS: ASPIRIN 81MG ENTERIC TABLET PO SCH (10:30)
[2024-06-13] MEDS: LORATADINE 10 MG TAB PO SCH (10:31)
[2024-06-13] MEDS: amLODIPine 5 MG TAB PO SCH (10:32)
[2024-06-13] MEDS: OMEPRAZOLE 20MG CAP PO SCH (10:39)
[2024-06-13 12:09] VITALS: BP 144/62; TEMP 98.1; O2SAT 94
[2024-06-13 19:51] VITALS: BP 119/56; TEMP 97.9; O2SAT 95
[2024-06-13 23:30] VITALS: BP 112/55; TEMP 97.8; O2SAT 92
[2024-06-14] VITALS (14 sets, daily range): BP systolic 120–146; BP diastolic 57–72; TEMP 96.9–97.5; O2SAT 91–97
[2024-06-14 06:06] LABS: HEMATOCRIT 28.2 % (36.0-47.0); HEMOGLOBIN 8.8 g/dl (12.0-15.5); MEAN CORPUSCULAR HEMOGLOBIN 29.7 pg (27.0-33.0); MEAN CORPUSCULAR HGB CONC 31.2 g/dl (32.0-36.5); MEAN CORPUSCULAR VOLUME 95.3 fl (80.0-96.0); PLATELET COUNT, AUTOMATED 336 10^3/uL (150-450); RED BLOOD COUNT 2.96 10^6/uL (4.00-5.40); WHITE BLOOD COUNT 6.2 10^3/uL (4.0-10.0)
[2024-06-14 06:41] LABS: ALBUMIN 1.8 G/DL (3.2-5.2); ALKALINE PHOSPHATASE 114 U/L (35-104); ALT/SGPT 13 U/L (7.0-40); AST/SGOT 16 U/L (<34); BILIRUBIN,TOTAL 0.3 MG/DL (0.3-1.2); BLOOD UREA NITROGEN 13 MG/DL (9-23); CARBON DIOXIDE LEVEL 34 MMOL/L (20-31); CHLORIDE LEVEL 102 MMOL/L (98-107); CREATININE FOR GFR 0.78 MG/DL (0.55-1.30); GLOMERULAR FILTRATION RATE > 60.0 (>39); GLUCOSE, FASTING 87 MG/DL (74-106); POTASSIUM SERUM 3.7 MMOL/L (3.5-5.1); SODIUM LEVEL 143 MMOL/L (136-145); TOTAL PROTEIN 6.9 G/DL (5.7-8.2)
[2024-06-14] MEDS: ceFAZolin 1GM VIAL As Ordered ONE (08:37)
[2024-06-14] MEDS ORDERED: LIDOCAINE 2% 100MG/5ML SDV (FOR ANES.) As Ordered ONE (08:47)
[2024-06-14] MEDS ORDERED: fentaNYL 100 MCG/2 ML INJECTION As Ordered ONE (08:47)
[2024-06-14] MEDS ORDERED: propofoL 200 MG/20 ML VIAL As Ordered ONE (08:47)
[2024-06-14] MEDS ORDERED: KETOROLAC 60MG 2ML VIAL As Ordered ONE (09:03)
[2024-06-14] MEDS: ACETAMINOPHEN 325 MG TAB PO PRN (20:20)
[2024-06-15] VITALS (8 sets, daily range): BP systolic 114–142; BP diastolic 56–64; TEMP 97.4–99.5; O2SAT 90–98
[2024-06-15] MEDS ORDERED: HEPARIN SOD (PORCINE) 5000UNITS/ML 1ML VIAL/SYRINGE SQ SCH (06:00)
[2024-06-15] MEDS ORDERED: PILL CUTTER 1 EACH XX PRN (06:50)
[2024-06-15] MEDS: HYDROmorphone 2 MG TAB PO PRN (06:54)
[2024-06-15 07:37] LABS: HEMATOCRIT 26.9 % (36.0-47.0); HEMOGLOBIN 8.5 g/dl (12.0-15.5); MEAN CORPUSCULAR HEMOGLOBIN 30.4 pg (27.0-33.0); MEAN CORPUSCULAR HGB CONC 31.6 g/dl (32.0-36.5); MEAN CORPUSCULAR VOLUME 96.1 fl (80.0-96.0); PLATELET COUNT, AUTOMATED 390 10^3/uL (150-450); WHITE BLOOD COUNT 5.6 10^3/uL (4.0-10.0)
[2024-06-15 08:07] LABS: ALBUMIN 1.8 G/DL (3.2-5.2); ALKALINE PHOSPHATASE 102 U/L (35-104); ALT/SGPT < 9 U/L (7.0-40); AST/SGOT 21 U/L (<34); BILIRUBIN,TOTAL 0.4 MG/DL (0.3-1.2); BLOOD UREA NITROGEN 12 MG/DL (9-23); CALCIUM LEVEL 7.6 MG/DL (8.3-10.6); CARBON DIOXIDE LEVEL 33 MMOL/L (20-31); CHLORIDE LEVEL 102 MMOL/L (98-107); CREATININE FOR GFR 0.83 MG/DL (0.55-1.30); GLOMERULAR FILTRATION RATE > 60.0 (>39); GLUCOSE, FASTING 117 MG/DL (74-106); POTASSIUM SERUM 4.1 MMOL/L (3.5-5.1); SODIUM LEVEL 141 MMOL/L (136-145); TOTAL PROTEIN 6.8 G/DL (5.7-8.2)
[2024-06-15] MEDS: HEPARIN SOD (PORCINE) 5000UNITS/ML 1ML VIAL/SYRINGE SQ SCH (08:36)
[2024-06-15] MEDS ORDERED: FUROSEMIDE 40 MG TAB PO SCH (09:00)
[2024-06-15] MEDS: PERCOCET 5MG/325MG TAB PO PRN (15:26)
[2024-06-15] MEDS: MORPHINE 2 MG/ML 1ML VIAL IV PRN (17:21)
[2024-06-15] MEDS: hydrOXYzine 50 MG TAB PO STA (20:32)
[2024-06-16 04:57] VITALS: BP 132/63; TEMP 97.6; O2SAT 96
[2024-06-16 07:46] LABS: HEMATOCRIT 25.6 % (36.0-47.0); HEMOGLOBIN 7.9 g/dl (12.0-15.5); MEAN CORPUSCULAR HEMOGLOBIN 29.2 pg (27.0-33.0); MEAN CORPUSCULAR HGB CONC 30.9 g/dl (32.0-36.5); MEAN CORPUSCULAR VOLUME 94.5 fl (80.0-96.0); PLATELET COUNT, AUTOMATED 345 10^3/uL (150-450); RED BLOOD COUNT 2.71 10^6/uL (4.00-5.40); WHITE BLOOD COUNT 5.2 10^3/uL (4.0-10.0)
[2024-06-16 08:00] VITALS: BP 150/67; TEMP 98; O2SAT 97
[2024-06-16 08:12] VITALS: BP 150/67
[2024-06-16 08:15] LABS: ALBUMIN 1.9 G/DL (3.2-5.2); ALKALINE PHOSPHATASE 102 U/L (35-104); ALT/SGPT < 9 U/L (7.0-40); AST/SGOT 17 U/L (<34); BILIRUBIN,TOTAL 0.3 MG/DL (0.3-1.2); BLOOD UREA NITROGEN 13 MG/DL (9-23); CALCIUM LEVEL 7.1 MG/DL (8.3-10.6); CARBON DIOXIDE LEVEL 33 MMOL/L (20-31); CHLORIDE LEVEL 100 MMOL/L (98-107); GLOMERULAR FILTRATION RATE > 60.0 (>39); GLUCOSE, FASTING 121 MG/DL (74-106); POTASSIUM SERUM 3.4 MMOL/L (3.5-5.1); SODIUM LEVEL 141 MMOL/L (136-145); TOTAL PROTEIN 6.8 G/DL (5.7-8.2)
[2024-06-16] MEDS: POTASSIUM CHLORIDE 10MEQ SR TABLET PO ONE (10:47)
[2024-06-16] MEDS: KCL 10MEQ/100ML SWI (KRUN) 10 MEQ in IV 1 EA IV SCH (10:47)
[2024-06-16] MEDS ORDERED: OXYC1TAB23 PO (11:16)
[2024-06-16] MEDS ORDERED: OMEP-173 PO (11:16)
[2024-06-16 11:48] VITALS: BP 126/61; TEMP 98.3; O2SAT 96
[2024-06-16 12:36] LABS: HEMATOCRIT 28.7 % (36.0-47.0); HEMOGLOBIN 8.8 g/dl (12.0-15.5)
[2024-06-16 13:28] LABS: BLOOD UREA NITROGEN 14 MG/DL (9-23); CALCIUM LEVEL 7.3 MG/DL (8.3-10.6); CARBON DIOXIDE LEVEL 35 MMOL/L (20-31); CHLORIDE LEVEL 99 MMOL/L (98-107); CREATININE FOR GFR 0.82 MG/DL (0.55-1.30); GLOMERULAR FILTRATION RATE > 60.0 (>39); GLUCOSE, FASTING 132 MG/DL (74-106); POTASSIUM SERUM 3.9 MMOL/L (3.5-5.1); SODIUM LEVEL 140 MMOL/L (136-145)
[2024-06-16 15:34] VITALS: BP 130/61; TEMP 98.9; O2SAT 98
[2024-06-16 19:08] VITALS: BP 129/60; TEMP 98.9; O2SAT 94
[2024-06-17] VITALS: BP 135/66; TEMP 98.6; O2SAT 95
[2024-06-17 04:00] VITALS: BP 122/60; TEMP 98.9; O2SAT 93
[2024-06-17 07:48] VITALS: BP 144/65; TEMP 98.4; O2SAT 94
[2024-06-17 08:00] VITALS: O2SAT 94
== END 2024-06-17 11:30 | DRG 240 ==
LOC: M PCU 11:58
PROVIDERS: ADMIT Internal Medicine; ATTEND Internal Medicine
PROC: 0Y6N0Z7 Detachment at Left Foot, Complete 4th Ray, Open Approach (ICD-10-PCS; 2024-06-14)
PROC: 0Y6N0Z8 Detachment at Left Foot, Complete 5th Ray, Open Approach (ICD-10-PCS; 2024-06-14)
PROC: 0Y6N0Z4 Detachment at Left Foot, Complete 1st Ray, Open Approach (ICD-10-PCS; principal; 2024-06-14 09:40)
DX: E11.52 Type 2 diabetes mellitus with diabetic peripheral angiopathy with gangrene (principal); K76.6 Portal hypertension; R18.8 Other ascites; K74.60 Unspecified cirrhosis of liver; I25.10 Atherosclerotic heart disease of native coronary artery without angina pectoris; E78.5 Hyperlipidemia, unspecified; I10 Essential (primary) hypertension; E11.42 Type 2 diabetes mellitus with diabetic polyneuropathy; I25.2 Old myocardial infarction; E11.649 Type 2 diabetes mellitus with hypoglycemia without coma; K21.9 Gastro-esophageal reflux disease without esophagitis; J45.909 Unspecified asthma, uncomplicated; D50.9 Iron deficiency anemia, unspecified; Z66 Do not resuscitate; Z89.422 Acquired absence of other left toe(s); Z79.82 Long term (current) use of aspirin; Z79.4 Long term (current) use of insulin; Z79.899 Other long term (current) drug therapy; Z88.0 Allergy status to penicillin; Z88.5 Allergy status to narcotic agent; Z88.8 Allergy status to other drugs, medicaments and biological substances

== ENCOUNTER → 2024-06-15 | Outpatient (REF) ==
[~2024-06-15] MED LIST changes: +FURO20TA2 PO; +FURO40TA2 PO; +PROP40TA62 PO; +SPIR-10 PO
== END ==
PROVIDERS: ATTEND Physician Assistant
DX: R18.8 Other ascites (principal); Z53.9 Procedure and treatment not carried out, unspecified reason

== ENCOUNTER → 2024-06-15 | Outpatient (REF) | PROVIDERS: ATTEND Physician Assistant | DX: D64.9 Anemia, unspecified (principal); Z53.9 Procedure and treatment not carried out, unspecified reason ==

== ENCOUNTER → 2024-06-22 | Outpatient (REF) ==
[2024-06-22 10:11] LABS: HEMATOCRIT 24.7 % (36.0-47.0); HEMOGLOBIN 7.7 g/dl (12.0-15.5); MEAN CORPUSCULAR HEMOGLOBIN 29.7 pg (27.0-33.0); MEAN CORPUSCULAR HGB CONC 31.2 g/dl (32.0-36.5); MEAN CORPUSCULAR VOLUME 95.4 fl (80.0-96.0); PLATELET COUNT, AUTOMATED 349 10^3/uL (150-450); RED BLOOD COUNT 2.59 10^6/uL (4.00-5.40); WHITE BLOOD COUNT 6.7 10^3/uL (4.0-10.0)
[2024-06-22 10:52] LABS: BLOOD UREA NITROGEN 18 MG/DL (9-23); CALCIUM LEVEL 7.5 MG/DL (8.3-10.6); CARBON DIOXIDE LEVEL 28 MMOL/L (20-31); CHLORIDE LEVEL 100 MMOL/L (98-107); CREATININE FOR GFR 0.63 MG/DL (0.55-1.30); GLOMERULAR FILTRATION RATE > 60.0 (>39); GLUCOSE, FASTING 110 MG/DL (74-106); POTASSIUM SERUM 3.9 MMOL/L (3.5-5.1); SODIUM LEVEL 138 MMOL/L (136-145)
== END ==
PROVIDERS: ATTEND Physician Assistant
DX: E78.5 Hyperlipidemia, unspecified (principal)

== ENCOUNTER → 2024-06-24 | Outpatient (REF) ==
[2024-06-24 10:55] LABS: HEMOGLOBIN 8.1 g/dl (12.0-15.5); MEAN CORPUSCULAR HEMOGLOBIN 30.1 pg (27.0-33.0); MEAN CORPUSCULAR HGB CONC 31.2 g/dl (32.0-36.5); MEAN CORPUSCULAR VOLUME 96.7 fl (80.0-96.0); PLATELET COUNT, AUTOMATED 361 10^3/uL (150-450); RED BLOOD COUNT 2.69 10^6/uL (4.00-5.40); WHITE BLOOD COUNT 5.9 10^3/uL (4.0-10.0)
[2024-06-24 11:14] LABS: BLOOD UREA NITROGEN 19 MG/DL (9-23); CALCIUM LEVEL 7.7 MG/DL (8.3-10.6); CARBON DIOXIDE LEVEL 29 MMOL/L (20-31); CHLORIDE LEVEL 102 MMOL/L (98-107); CREATININE FOR GFR 0.73 MG/DL (0.55-1.30); GLOMERULAR FILTRATION RATE > 60.0 (>39); GLUCOSE, FASTING 126 MG/DL (74-106); POTASSIUM SERUM 3.9 MMOL/L (3.5-5.1); SODIUM LEVEL 142 MMOL/L (136-145)
== END ==
PROVIDERS: ATTEND Physician Assistant
DX: D64.9 Anemia, unspecified (principal)

== ENCOUNTER → 2024-06-26 | Outpatient (REF) ==
[2024-06-26 08:27] LABS: INR 1.15
[2024-06-26 08:56] LABS: IRON (FE) 27 UG/DL (50-170)
[2024-06-26 08:58] LABS: PERCENT SATURATION 11.5 % (13.2-45.0); TOTAL IRON BINDING CAPACITY 234 UG/DL (250-425)
[2024-06-26 09:10] LABS: HEPATITIS B SURFACE ANTIGEN NEGATIVE (NEGATIVE)
[2024-06-26 09:31] LABS: HEPATITIS B CORE ANTIBODY IGM NEGATIVE (NEGATIVE); HEPATITIS C VIRUS ABY INDEX 0.18 INDEX (<0.8)
[2024-06-29 16:42] LABS: ANA PATTERN Nuclear, Homogeneous (NEGATIVE); ANA SCREEN, IFA POSITIVE (NEGATIVE)
== END ==
PROVIDERS: ATTEND Internal Medicine
DX: M19.90 Unspecified osteoarthritis, unspecified site (principal)

== ENCOUNTER → 2024-06-29 | Outpatient (REF) ==
[2024-06-29 08:04] LABS: HEMATOCRIT 25.3 % (36.0-47.0); HEMOGLOBIN 7.6 g/dl (12.0-15.5); MEAN CORPUSCULAR HEMOGLOBIN 29.8 pg (27.0-33.0); MEAN CORPUSCULAR VOLUME 99.2 fl (80.0-96.0); PLATELET COUNT, AUTOMATED 371 10^3/uL (150-450); RED BLOOD COUNT 2.55 10^6/uL (4.00-5.40)
[2024-06-29 08:29] LABS: BLOOD UREA NITROGEN 20 MG/DL (9-23); CALCIUM LEVEL 7.6 MG/DL (8.3-10.6); CARBON DIOXIDE LEVEL 30 MMOL/L (20-31); CHLORIDE LEVEL 103 MMOL/L (98-107); CREATININE FOR GFR 0.79 MG/DL (0.55-1.30); GLOMERULAR FILTRATION RATE > 60.0 (>39); GLUCOSE, FASTING 87 MG/DL (74-106); SODIUM LEVEL 143 MMOL/L (136-145)
== END ==
PROVIDERS: ATTEND Physician Assistant
DX: E78.5 Hyperlipidemia, unspecified (principal)

== ENCOUNTER → 2024-07-03 | Outpatient (REF) ==
[2024-07-03 08:00] LABS: HEMATOCRIT 26.4 % (36.0-47.0); MEAN CORPUSCULAR HGB CONC 30.3 g/dl (32.0-36.5); MEAN CORPUSCULAR VOLUME 98.9 fl (80.0-96.0); PLATELET COUNT, AUTOMATED 339 10^3/uL (150-450); RED BLOOD COUNT 2.67 10^6/uL (4.00-5.40); WHITE BLOOD COUNT 6.6 10^3/uL (4.0-10.0)
== END ==
PROVIDERS: ATTEND Internal Medicine
DX: D64.9 Anemia, unspecified (principal)

== ENCOUNTER → 2024-07-07 | Outpatient (REF) ==
[2024-07-07 14:12] LABS: HEMATOCRIT 25.5 % (36.0-47.0); HEMOGLOBIN 7.8 g/dl (12.0-15.5); MEAN CORPUSCULAR HEMOGLOBIN 30.2 pg (27.0-33.0); MEAN CORPUSCULAR HGB CONC 30.6 g/dl (32.0-36.5); MEAN CORPUSCULAR VOLUME 98.8 fl (80.0-96.0); PLATELET COUNT, AUTOMATED 319 10^3/uL (150-450); RED BLOOD COUNT 2.58 10^6/uL (4.00-5.40); WHITE BLOOD COUNT 6.3 10^3/uL (4.0-10.0)
== END ==
PROVIDERS: ATTEND Physician Assistant
DX: D64.9 Anemia, unspecified (principal)

== ENCOUNTER → 2024-07-20 | Outpatient (REF) ==
[2024-07-20 11:41] LABS: HEMATOCRIT 27.3 % (36.0-47.0); MEAN CORPUSCULAR HEMOGLOBIN 30.1 pg (27.0-33.0); MEAN CORPUSCULAR HGB CONC 29.3 g/dl (32.0-36.5); MEAN CORPUSCULAR VOLUME 102.6 fl (80.0-96.0); PLATELET COUNT, AUTOMATED 272 10^3/uL (150-450); RED BLOOD COUNT 2.66 10^6/uL (4.00-5.40); WHITE BLOOD COUNT 5.1 10^3/uL (4.0-10.0)
[2024-07-20 12:36] LABS: BLOOD UREA NITROGEN 29 MG/DL (9-23); CALCIUM LEVEL 8.8 MG/DL (8.3-10.6); CARBON DIOXIDE LEVEL 27 MMOL/L (20-31); CHLORIDE LEVEL 102 MMOL/L (98-107); CREATININE FOR GFR 0.87 MG/DL (0.55-1.30); GLOMERULAR FILTRATION RATE > 60.0 (>39); GLUCOSE, FASTING 209 MG/DL (74-106); POTASSIUM SERUM 4.4 MMOL/L (3.5-5.1); SODIUM LEVEL 141 MMOL/L (136-145)
== END ==
PROVIDERS: ATTEND Physician Assistant
DX: I10 Essential (primary) hypertension (principal)

== ENCOUNTER 2024-08-07 08:40 | Emergency (ER) | payer MEDICARE ==
[2024-08-07] VITALS (7 sets, daily range): BP systolic 105–130; BP diastolic 53–61; TEMP 97.1–98.1; O2SAT 97–99
[~2024-08-07] VITALS: Ht 157.5 cm; Wt 74.2 kg
[~2024-08-07 08:40] MED LIST changes: -ACET1TAB55 PO; -BISA10SU4 PR; -BISA5TAB77 PO; -CVS1CAP5 PO; -FLEEENE12 PR; -GABA-284 PO; -GLUC1KIT IM; -MAGN400O73 PO; -METF10004 PO; -VITA200012 PO
[2024-08-07 10:03] LABS: INR 1.06; PROTHROMBIN TIME 14.1 SECONDS (12.5-14.5)
[2024-08-07] MEDS: PERCOCET 5MG/325MG TAB PO ONE (12:32)
[2024-08-07] MEDS ORDERED: VITA200012 PO (13:05)
[2024-08-07] MEDS ORDERED: FURO40TA2 PO (13:07)
[2024-08-07] MEDS ORDERED: METF10004 PO (13:11)
[2024-08-07] MEDS ORDERED: GABA-284 PO (13:22)
[2024-08-07] MEDS ORDERED: CVS1CAP5 PO (13:22)
[2024-08-07] MEDS ORDERED: INSUHUMDS SC (13:22)
[2024-08-07] MEDS ORDERED: ACET1TAB55 PO (13:25)
[2024-08-07] MEDS ORDERED: BISA5TAB77 PO (13:25)
[2024-08-07] MEDS ORDERED: FLEEENE12 PR (13:25)
[2024-08-07] MEDS ORDERED: BISA10SU4 PR (13:25)
[2024-08-07] MEDS ORDERED: OXYC1TAB23 PO (13:30)
[2024-08-07] MEDS ORDERED: GLUC1KIT IM (13:30)
[2024-08-07] MEDS ORDERED: MAGN400O73 PO (13:30)
[2024-08-07] MEDS ORDERED: HOME MED LIST COMPLETE! XX SCH (13:35)
[2024-08-07] MEDS ORDERED: BISACODYL 10MG SUPP PR PRN (14:40)
[2024-08-07] MEDS ORDERED: BISACODYL 5MG TAB PO PRN (14:40)
[2024-08-07] MEDS ORDERED: DEXTROSE 50% 50ML SYRINGE IV PRN (14:45)
[2024-08-07] MEDS ORDERED: GLUCAGON INJ 1MG VIAL SC PRN (14:45)
[2024-08-07] MEDS ORDERED: GLUCOSE 4 GM CHEW PO PRN (14:45)
[2024-08-07] MEDS: methocarbamoL 750 MG TAB PO SCH (15:57)
[2024-08-07] MEDS: GABAPENTIN 400MG CAP PO SCH (15:57)
[2024-08-07] MEDS: INSULIN LISPRO (NovoLOG) PER UNIT SC SCH (17:30)
[2024-08-07 17:40] LABS: HEMATOCRIT 28.2 % (36.0-47.0); HEMOGLOBIN 8.8 g/dl (12.0-15.5); MEAN CORPUSCULAR HGB CONC 31.2 g/dl (32.0-36.5); MEAN CORPUSCULAR VOLUME 99.3 fl (80.0-96.0); PLATELET COUNT, AUTOMATED 242 10^3/uL (150-450); RED BLOOD COUNT 2.84 10^6/uL (4.00-5.40); WHITE BLOOD COUNT 7.4 10^3/uL (4.0-10.0)
[2024-08-07 18:04] LABS: CALCIUM LEVEL 8.5 MG/DL (8.3-10.6); CREATININE FOR GFR 0.97 MG/DL (0.55-1.30); GLOMERULAR FILTRATION RATE 59.4 (>39); POTASSIUM SERUM 4.5 MMOL/L (3.5-5.1)
[2024-08-07] MEDS: PERCOCET 5MG/325MG TAB PO PRN (18:49)
[2024-08-07] MEDS ORDERED: INSULIN LISPRO (NovoLOG) PER UNIT SC SCH (21:00)
[2024-08-07] MEDS ORDERED: ACETAMINOPHEN 650MG ER TAB (TYLENOL ARTHRITIS) PO SCH (21:00)
[2024-08-08] MEDS ORDERED: OMEPRAZOLE 20MG CAP PO SCH (09:00)
[2024-08-08] MEDS ORDERED: amLODIPine 5 MG TAB PO SCH ×2 (09:00)
[2024-08-08] MEDS ORDERED: TORSEMIDE 10 MG TABLET PO SCH (09:00)
[2024-08-08] MEDS ORDERED: glipiZIDE (GLUCOTROL) 5 MG TAB PO SCH (09:00)
[2024-08-08] MEDS ORDERED: ATORVASTATIN 20 MG TAB PO SCH (09:00)
[2024-08-08] MEDS ORDERED: SPIRONOLACTONE 25 MG TAB PO SCH (09:00)
[2024-08-08] MEDS ORDERED: PROPRANOLOL 20 MG TAB PO SCH (09:00)
[2024-08-08] MEDS ORDERED: LORATADINE 10 MG TAB PO SCH (09:00)
[2024-08-08] MEDS ORDERED: ASPIRIN 81MG ENTERIC TABLET PO SCH (09:00)
[2024-08-08] MEDS ORDERED: FERROUS SULFATE 325MG TAB PO SCH (09:00)
[2024-08-08] MEDS ORDERED: LanTUS (INSULIN GLARGINE INJ) 1 UNITS/0.01 ML SC SCH (18:00)
== END 2024-08-07 19:25 | disposition home or self-care (01) ==
LOC: M ED 08:40 → EDBD 08:40 → M ED 19:25
DX: D64.9 Anemia, unspecified (principal); I25.119 Atherosclerotic heart disease of native coronary artery with unspecified angina pectoris; E11.9 Type 2 diabetes mellitus without complications; I10 Essential (primary) hypertension; Z88.8 Allergy status to other drugs, medicaments and biological substances; Z79.1 Long term (current) use of non-steroidal anti-inflammatories (NSAID); Z79.4 Long term (current) use of insulin; Z79.84 Long term (current) use of oral hypoglycemic drugs; Z79.899 Other long term (current) drug therapy
CPT/HCPCS: 36415; 80048; 85027; 85610; 86850; 86900; 86901; 86920; 93005; 99285; P9016

== ENCOUNTER → 2024-08-07 | Outpatient (REF) ==
[~2024-08-07] MED LIST changes: +ACET1TAB55 PO; +BISA10SU4 PR; +BISA5TAB77 PO; +CVS1CAP5 PO; +FLEEENE12 PR; +GABA-284 PO; +GLUC1KIT IM; +MAGN400O73 PO; +METF10004 PO; +VITA200012 PO
[2024-08-07 07:26] LABS: MEAN CORPUSCULAR HEMOGLOBIN 30.9 pg (27.0-33.0); MEAN CORPUSCULAR HGB CONC 29.4 g/dl (32.0-36.5); MEAN CORPUSCULAR VOLUME 105.2 fl (80.0-96.0); PLATELET COUNT, AUTOMATED 205 10^3/uL (150-450); RED BLOOD COUNT 1.91 10^6/uL (4.00-5.40)
[2024-08-07 07:31] LABS: HEMOGLOBIN 5.9 g/dl (12.0-15.5)
[2024-08-07 07:32] LABS: HEMATOCRIT 20.1 % (36.0-47.0)
[2024-08-07 07:55] LABS: ALBUMIN 2.7 G/DL (3.2-5.2); ALKALINE PHOSPHATASE 92 U/L (35-104); ALT/SGPT 18 U/L (7.0-40); AST/SGOT 20 U/L (<34); BILIRUBIN,TOTAL 0.2 MG/DL (0.3-1.2); BLOOD UREA NITROGEN 37 MG/DL (9-23); CALCIUM LEVEL 8.4 MG/DL (8.3-10.6); CARBON DIOXIDE LEVEL 28 MMOL/L (20-31); CHLORIDE LEVEL 104 MMOL/L (98-107); CREATININE FOR GFR 0.93 MG/DL (0.55-1.30); GLOMERULAR FILTRATION RATE > 60.0 (>39); GLUCOSE, FASTING 136 MG/DL (74-106); POTASSIUM SERUM 4.3 MMOL/L (3.5-5.1); SODIUM LEVEL 139 MMOL/L (136-145); TOTAL PROTEIN 6.6 G/DL (5.7-8.2)
[2024-08-07 07:57] LABS: FREE T4 0.96 NG/DL (0.89-1.76); THYROID STIMULATING HORMONE 2.177 uIU/ML (0.55-4.78)
[2024-08-07 09:10] LABS: HEMOGLOBIN A1c 4.4 % (4.0-6.0)
== END ==
PROVIDERS: ATTEND Physician Assistant
DX: R63.4 Abnormal weight loss (principal)

== ENCOUNTER → 2024-08-12 | Outpatient (REF) ==
[~2024-08-12] MED LIST changes: +ACET1TAB55 PO; +BISA10SU4 PR; +BISA5TAB77 PO; +CVS1CAP5 PO; +FLEEENE12 PR; +GABA-284 PO; +GLUC1KIT IM; +MAGN400O73 PO; +METF10004 PO; +VITA200012 PO
[2024-08-12 09:22] LABS: HEMATOCRIT 26.3 % (36.0-47.0); HEMOGLOBIN 8.1 g/dl (12.0-15.5); MEAN CORPUSCULAR HGB CONC 30.8 g/dl (32.0-36.5); PLATELET COUNT, AUTOMATED 253 10^3/uL (150-450); RED BLOOD COUNT 2.53 10^6/uL (4.00-5.40); WHITE BLOOD COUNT 4.7 10^3/uL (4.0-10.0)
[2024-08-12 09:51] LABS: BLOOD UREA NITROGEN 42 MG/DL (9-23); CALCIUM LEVEL 8.9 MG/DL (8.3-10.6); CARBON DIOXIDE LEVEL 28 MMOL/L (20-31); CHLORIDE LEVEL 101 MMOL/L (98-107); CREATININE FOR GFR 0.91 MG/DL (0.55-1.30); GLOMERULAR FILTRATION RATE > 60.0 (>39); GLUCOSE, FASTING 125 MG/DL (74-106); POTASSIUM SERUM 4.5 MMOL/L (3.5-5.1); SODIUM LEVEL 139 MMOL/L (136-145)
== END ==
PROVIDERS: ATTEND Physician Assistant
DX: D64.9 Anemia, unspecified (principal)

== ENCOUNTER → 2024-08-17 | Outpatient (REF) ==
[2024-08-17 10:09] LABS: BASO % 0.7 % (0.0-1.0); EOS # 0.2 10^3/uL (0.0-0.5); EOS % 4.5 % (0.0-3.0); HEMATOCRIT 26.2 % (36.0-47.0); HEMOGLOBIN 8.3 g/dl (12.0-15.5); LYMPH # 0.8 10^3/uL (1.5-5.0); LYMPH % 18.9 % (24.0-44.0); MEAN CORPUSCULAR HEMOGLOBIN 32.7 pg (27.0-33.0); MEAN CORPUSCULAR HGB CONC 31.7 g/dl (32.0-36.5); MEAN CORPUSCULAR VOLUME 103.1 fl (80.0-96.0); MONO # 0.6 10^3/uL (0.0-0.8); MONO % 13.7 % (2.0-8.0); NEUTROPHILS # 2.8 10^3/uL (1.5-8.5); NEUTROPHILS % 61.8 % (36.0-66.0); PLATELET COUNT, AUTOMATED 230 10^3/uL (150-450); RED BLOOD COUNT 2.54 10^6/uL (4.00-5.40); WHITE BLOOD COUNT 4.5 10^3/uL (4.0-10.0)
[2024-08-17 10:23] LABS: ERYTHROCYTE SEDIMENTATION RATE 83 mm/hr (0-30)
[2024-08-17 10:38] LABS: C REACTIVE PROTEIN QUANTITATIV 0.67 MG/DL (<1.0)
[2024-08-17 10:39] LABS: ALBUMIN 3.1 G/DL (3.2-5.2); ALKALINE PHOSPHATASE 97 U/L (35-104); ALT/SGPT 19 U/L (7.0-40); AST/SGOT 17 U/L (<34); BILIRUBIN,DIRECT < 0.1 MG/DL (<0.4); BILIRUBIN,TOTAL 0.3 MG/DL (0.3-1.2); BLOOD UREA NITROGEN 37 MG/DL (9-23); CALCIUM LEVEL 9.3 MG/DL (8.3-10.6); CARBON DIOXIDE LEVEL 29 MMOL/L (20-31); CHLORIDE LEVEL 103 MMOL/L (98-107); CREATININE FOR GFR 0.97 MG/DL (0.55-1.30); GLOMERULAR FILTRATION RATE 59.4 (>39); GLUCOSE, FASTING 175 MG/DL (74-106); IRON (FE) 29 UG/DL (50-170); PERCENT SATURATION 8.6 % (13.2-45.0); POTASSIUM SERUM 4.2 MMOL/L (3.5-5.1); SODIUM LEVEL 140 MMOL/L (136-145); TOTAL IRON BINDING CAPACITY 336 UG/DL (250-425); TOTAL PROTEIN 7.2 G/DL (5.7-8.2)
[2024-08-17 10:40] LABS: FERRITIN 27.8 NG/ML (7.3-270.7); FOLATE 19.48 NG/ML (>5.4); VITAMIN B12 LEVEL 495 PG/ML (211-911)
== END ==
PROVIDERS: ATTEND Physician Assistant
DX: D64.9 Anemia, unspecified (principal)

== ENCOUNTER → 2024-08-19 | Outpatient (REF) ==
[2024-08-19 08:31] LABS: HEMATOCRIT 26.5 % (36.0-47.0); HEMOGLOBIN 8.4 g/dl (12.0-15.5); MEAN CORPUSCULAR HEMOGLOBIN 31.8 pg (27.0-33.0); MEAN CORPUSCULAR HGB CONC 31.7 g/dl (32.0-36.5); MEAN CORPUSCULAR VOLUME 100.4 fl (80.0-96.0); PLATELET COUNT, AUTOMATED 259 10^3/uL (150-450); RED BLOOD COUNT 2.64 10^6/uL (4.00-5.40); WHITE BLOOD COUNT 4.5 10^3/uL (4.0-10.0)
[2024-08-19 09:04] LABS: BLOOD UREA NITROGEN 44 MG/DL (9-23); CARBON DIOXIDE LEVEL 28 MMOL/L (20-31); CHLORIDE LEVEL 102 MMOL/L (98-107); CREATININE FOR GFR 0.92 MG/DL (0.55-1.30); GLOMERULAR FILTRATION RATE > 60.0 (>39); GLUCOSE, FASTING 93 MG/DL (74-106); POTASSIUM SERUM 4.3 MMOL/L (3.5-5.1); SODIUM LEVEL 139 MMOL/L (136-145)
== END ==
PROVIDERS: ATTEND Physician Assistant
DX: D64.9 Anemia, unspecified (principal)

== ENCOUNTER → 2024-08-24 | Outpatient (REF) ==
[2024-08-24 10:29] LABS: HEMATOCRIT 27.1 % (36.0-47.0); HEMOGLOBIN 8.3 g/dl (12.0-15.5); MEAN CORPUSCULAR HEMOGLOBIN 31.8 pg (27.0-33.0); MEAN CORPUSCULAR HGB CONC 30.6 g/dl (32.0-36.5); MEAN CORPUSCULAR VOLUME 103.8 fl (80.0-96.0); PLATELET COUNT, AUTOMATED 208 10^3/uL (150-450); RED BLOOD COUNT 2.61 10^6/uL (4.00-5.40); WHITE BLOOD COUNT 3.8 10^3/uL (4.0-10.0)
[2024-08-24 10:59] LABS: BLOOD UREA NITROGEN 58 MG/DL (9-23); CALCIUM LEVEL 9.5 MG/DL (8.3-10.6); CARBON DIOXIDE LEVEL 30 MMOL/L (20-31); CHLORIDE LEVEL 102 MMOL/L (98-107); CREATININE FOR GFR 0.94 MG/DL (0.55-1.30); GLOMERULAR FILTRATION RATE > 60.0 (>39); GLUCOSE, FASTING 156 MG/DL (74-106); POTASSIUM SERUM 4.6 MMOL/L (3.5-5.1); SODIUM LEVEL 140 MMOL/L (136-145)
== END ==
PROVIDERS: ATTEND Physician Assistant
DX: I10 Essential (primary) hypertension (principal)

== ENCOUNTER → 2024-08-26 | Outpatient (REF) ==
[2024-08-26 07:45] LABS: HEMOGLOBIN 8.3 g/dl (12.0-15.5); MEAN CORPUSCULAR HEMOGLOBIN 31.7 pg (27.0-33.0); MEAN CORPUSCULAR HGB CONC 30.7 g/dl (32.0-36.5); MEAN CORPUSCULAR VOLUME 103.1 fl (80.0-96.0); PLATELET COUNT, AUTOMATED 200 10^3/uL (150-450); RED BLOOD COUNT 2.62 10^6/uL (4.00-5.40); WHITE BLOOD COUNT 4.6 10^3/uL (4.0-10.0)
[2024-08-26 08:18] LABS: BLOOD UREA NITROGEN 63 MG/DL (9-23); CALCIUM LEVEL 9.2 MG/DL (8.3-10.6); CARBON DIOXIDE LEVEL 29 MMOL/L (20-31); CHLORIDE LEVEL 103 MMOL/L (98-107); CREATININE FOR GFR 0.91 MG/DL (0.55-1.30); GLOMERULAR FILTRATION RATE > 60.0 (>39); GLUCOSE, FASTING 94 MG/DL (74-106); POTASSIUM SERUM 4.5 MMOL/L (3.5-5.1); SODIUM LEVEL 141 MMOL/L (136-145)
== END ==
PROVIDERS: ATTEND Physician Assistant
DX: D64.9 Anemia, unspecified (principal)

== ENCOUNTER → 2024-09-02 | Outpatient (REF) ==
[2024-09-02 08:53] LABS: HEMATOCRIT 26.6 % (36.0-47.0); HEMOGLOBIN 8.5 g/dl (12.0-15.5); MEAN CORPUSCULAR HEMOGLOBIN 33.1 pg (27.0-33.0); MEAN CORPUSCULAR VOLUME 103.5 fl (80.0-96.0); PLATELET COUNT, AUTOMATED 177 10^3/uL (150-450); RED BLOOD COUNT 2.57 10^6/uL (4.00-5.40); WHITE BLOOD COUNT 3.8 10^3/uL (4.0-10.0)
[2024-09-02 09:25] LABS: CALCIUM LEVEL 9.6 MG/DL (8.3-10.6); CREATININE FOR GFR 0.94 MG/DL (0.55-1.30); GLOMERULAR FILTRATION RATE 62.9 (>39); POTASSIUM SERUM 4.8 MMOL/L (3.5-5.1)
== END ==
PROVIDERS: ATTEND Physician Assistant
DX: D64.9 Anemia, unspecified (principal)

== ENCOUNTER → 2024-09-07 | Outpatient (REF) ==
[2024-09-07 11:20] LABS: HEMATOCRIT 27.3 % (36.0-47.0); HEMOGLOBIN 8.5 g/dl (12.0-15.5); MEAN CORPUSCULAR HEMOGLOBIN 32.4 pg (27.0-33.0); MEAN CORPUSCULAR HGB CONC 31.1 g/dl (32.0-36.5); MEAN CORPUSCULAR VOLUME 104.2 fl (80.0-96.0); PLATELET COUNT, AUTOMATED 187 10^3/uL (150-450); RED BLOOD COUNT 2.62 10^6/uL (4.00-5.40); WHITE BLOOD COUNT 3.9 10^3/uL (4.0-10.0)
[2024-09-07 11:49] LABS: CALCIUM LEVEL 9.1 MG/DL (8.3-10.6); CREATININE FOR GFR 1.03 MG/DL (0.55-1.30); GLOMERULAR FILTRATION RATE 56.4 (>39); POTASSIUM SERUM 4.2 MMOL/L (3.5-5.1)
[2024-09-08 08:18] LABS: Estimated Ave Glu(eAG) 4.7 mmol/L; Hemoglobin A1c 4.6 % (<5.7)
== END ==
PROVIDERS: ATTEND Physician Assistant
DX: D64.9 Anemia, unspecified (principal)

== ENCOUNTER → 2024-09-25 | Outpatient (REF) ==
[~2024-09-25] MED LIST changes: -GLUC1KIT IM; +GLUC1VIA14 IM
[2024-09-25 07:32] LABS: HEMATOCRIT 26.3 % (36.0-47.0); HEMOGLOBIN 8.1 g/dl (12.0-15.5); MEAN CORPUSCULAR HEMOGLOBIN 31.5 pg (27.0-33.0); MEAN CORPUSCULAR HGB CONC 30.8 g/dl (32.0-36.5); MEAN CORPUSCULAR VOLUME 102.3 fl (80.0-96.0); PLATELET COUNT, AUTOMATED 190 10^3/uL (150-450); RED BLOOD COUNT 2.57 10^6/uL (4.00-5.40); WHITE BLOOD COUNT 4.7 10^3/uL (4.0-10.0)
[2024-09-25 07:55] LABS: CALCIUM LEVEL 9.2 MG/DL (8.3-10.6); CREATININE FOR GFR 1.03 MG/DL (0.55-1.30); GLOMERULAR FILTRATION RATE 56.4 (>39); POTASSIUM SERUM 4.7 MMOL/L (3.5-5.1)
[2024-09-29 00:53] LABS: Estimated Ave Glu(eAG) 4.9 mmol/L; Hemoglobin A1c 4.7 % (<5.7)
== END ==
PROVIDERS: ATTEND Physician Assistant
DX: E11.9 Type 2 diabetes mellitus without complications (principal)

== ENCOUNTER 2024-10-05 09:40 | Emergency (ER) | payer MEDICARE ==
[~2024-10-05] VITALS: Ht 162.6 cm; Wt 70.0 kg
[2024-10-05] MEDS: PERCOCET 5MG/325MG TAB PO ONE (13:25)
[2024-10-05] MEDS ORDERED: DULO1CAP5 PO (13:55)
[2024-10-05] MEDS ORDERED: HOME MED LIST COMPLETE! XX SCH (13:55)
[2024-10-05 19:41] LABS: CALCIUM LEVEL 8.5 MG/DL (8.3-10.6); CREATININE FOR GFR 1.01 MG/DL (0.55-1.30); GLOMERULAR FILTRATION RATE 57.7 (>39); POTASSIUM SERUM 4.4 MMOL/L (3.5-5.1)
[2024-10-05 20:47] LABS: HEMATOCRIT 25.7 % (36.0-47.0); HEMOGLOBIN 8.2 g/dl (12.0-15.5); MEAN CORPUSCULAR HEMOGLOBIN 31.8 pg (27.0-33.0); MEAN CORPUSCULAR HGB CONC 31.9 g/dl (32.0-36.5); MEAN CORPUSCULAR VOLUME 99.6 fl (80.0-96.0); PLATELET COUNT, AUTOMATED 246 10^3/uL (150-450); RED BLOOD COUNT 2.58 10^6/uL (4.00-5.40); WHITE BLOOD COUNT 6.3 10^3/uL (4.0-10.0)
[2024-10-05] MEDS: GABAPENTIN 400MG CAP PO SCH (23:27)
[2024-10-05] MEDS: ACETAMINOPHEN 650MG ER TAB (TYLENOL ARTHRITIS) PO SCH (23:27)
[2024-10-05] MEDS: ATORVASTATIN 20 MG TAB PO SCH (23:27)
[2024-10-05] MEDS: LanTUS (INSULIN GLARGINE INJ) 1 UNITS/0.01 ML SC SCH (23:28)
[2024-10-06 01:51] VITALS: TEMP 96.2
[2024-10-06] MEDS: ASPIRIN 81MG ENTERIC TABLET PO SCH (09:11)
[2024-10-06] MEDS: SPIRONOLACTONE 25 MG TAB PO SCH (09:12)
[2024-10-06] MEDS: TORSEMIDE 10 MG TABLET PO SCH (09:12)
[2024-10-06] MEDS: OMEPRAZOLE 20MG CAP PO SCH (09:12)
[2024-10-06] MEDS: MULTIVITAMINS/MINERALS THERAP 1 TAB PO SCH (09:12)
[2024-10-06] MEDS: DULoxetine 30MG CAPSULE PO SCH (09:12)
[2024-10-06] MEDS: GABAPENTIN 300 MG CAP PO SCH (09:12)
[2024-10-06] MEDS: amLODIPine 5 MG TAB PO SCH (09:12)
[2024-10-06] MEDS: FERROUS SULFATE 325MG TAB PO SCH (09:13)
[2024-10-06] MEDS: glipiZIDE 5 MG TAB PO SCH (10:20)
[2024-10-06 10:21] VITALS: BP 128/58
[2024-10-06] MEDS: PROPRANOLOL 20 MG TAB PO SCH (10:21)
[2024-10-06 18:02] VITALS: BP 126/59; O2SAT 98
== END 2024-10-06 19:09 | disposition home or self-care (01) ==
LOC: EDBD 09:40 → M ED 09:40
DX: S70.02XA Contusion of left hip, initial encounter (principal); S82.142A Displaced bicondylar fracture of left tibia, initial encounter for closed fracture; Y92.9 Unspecified place or not applicable; Y93.9 Activity, unspecified; Y99.9 Unspecified external cause status; M25.462 Effusion, left knee; I25.119 Atherosclerotic heart disease of native coronary artery with unspecified angina pectoris; I25.2 Old myocardial infarction; E11.9 Type 2 diabetes mellitus without complications; E78.5 Hyperlipidemia, unspecified; D64.9 Anemia, unspecified; Z79.1 Long term (current) use of non-steroidal anti-inflammatories (NSAID); Z79.4 Long term (current) use of insulin; Z79.84 Long term (current) use of oral hypoglycemic drugs; Z79.899 Other long term (current) drug therapy; Z88.5 Allergy status to narcotic agent; Z88.8 Allergy status to other drugs, medicaments and biological substances
CPT/HCPCS: 72110; 73502; 73552; 73564; 73700; 73721; 80048; 85027; 96372; 97116; 97161; 97530; 99285; J1815

== ENCOUNTER → 2025-01-27 | Outpatient (REF) | payer MEDICARE ==
[~2025-01-27] MED LIST changes: +DICL1PAT6 TOP; +DULO1CAP5 PO; -EQL50TAB2 PO; +LIDO5TD TD; +LISI10TA22 PO; +LISI40TA10 PO; -LISI40TA4 PO; +OMEP40CA5 PO; +OXYC-517 PO; +PRES10CA2 PO; +PROT1TAB2 PO; +SUCR1ORA20 PO; +SUCR1TA PO; +VITA1TAB82 PO
[2025-01-27 11:19] LABS: PLATELET COUNT, AUTOMATED 376 10^3/uL (150-450)
[2025-01-27 11:57] LABS: C REACTIVE PROTEIN QUANTITATIV 5.32 MG/DL (<1.0); CALCIUM LEVEL 8.3 MG/DL (8.3-10.6); CARBON DIOXIDE LEVEL 21.0 MMOL/L (20-31); CHLORIDE LEVEL 102.0 MMOL/L (98-107); CREATININE FOR GFR 2.85 MG/DL (0.55-1.30); GLOMERULAR FILTRATION RATE 16.6 (>39); POTASSIUM SERUM 4.8 MMOL/L (3.5-5.1); SODIUM LEVEL 139.0 MMOL/L (136-145)
== END ==
LOC: M LAB REF 10:32
PROVIDERS: ATTEND Internal Medicine
DX: R78.81 Bacteremia (principal)

== ENCOUNTER 2025-01-30 08:27 | Emergency (ER) | payer MEDICARE ==
[~2025-01-30] VITALS: Ht 157.5 cm; Wt 72.6 kg
[2025-01-30] MEDS ORDERED: DEXTROSE 50% 50 ML SYRINGE As Ordered ONE (08:37)
[2025-01-30] MEDS: DEXTROSE 50% 50 ML SYRINGE IV STA (08:47)
[2025-01-30 08:56] LABS: VENOUS BASE EXCESS -11.3 (-2.0-2.0); VENOUS HCO3 15.4 MMOL/L (23.0-27.0); VENOUS O2 SATURATION 74.3 % (60.0-80.0); VENOUS PARTIAL PRESSURE CO2 38.1 mmHg (38.0-50.0); VENOUS PARTIAL PRESSURE O2 45.9 mmHg (30.0-50.0); VENOUS PH 7.224 UNITS (7.330-7.430); VENOUS STANDARD HCO3 15.0 MMOL/L; VENOUS TOTAL CO2 16.6 MMOL/L (24.0-28.0)
[2025-01-30 09:16] LABS: BASO # 0.0 10^3/uL (0.0-0.2); BASO % 0.2 % (0.0-1.0); EOS # 0.0 10^3/uL (0.0-0.5); EOS % 0.1 % (0.0-3.0); LYMPH # 0.9 10^3/uL (1.5-5.0); LYMPH % 5.2 % (24.0-44.0); MONO # 1.4 10^3/uL (0.0-0.8); MONO % 8.2 % (2.0-8.0); NEUTROPHILS # 14.0 10^3/uL (1.5-8.5); NEUTROPHILS % 83.5 % (36.0-66.0); PLATELET COUNT, AUTOMATED 361 10^3/uL (150-450)
[2025-01-30 09:26] LABS: C REACTIVE PROTEIN QUANTITATIV 5.33 MG/DL (<1.0)
[2025-01-30 09:27] LABS: ACETONE/KETONE 0.24 MMOL/L (0.02-0.27)
[2025-01-30 09:30] LABS: ALT/SGPT < 9 U/L (7.0-40); AST/SGOT 20 U/L (<34); CALCIUM LEVEL 8.1 MG/DL (8.3-10.6); CARBON DIOXIDE LEVEL 16 MMOL/L (20-31); CHLORIDE LEVEL 101 MMOL/L (98-107); CREATININE FOR GFR 4.39 MG/DL (0.55-1.30); GLOMERULAR FILTRATION RATE 9.9 (>39); MAGNESIUM LEVEL 1.6 MG/DL (1.8-2.4); POTASSIUM SERUM 4.4 MMOL/L (3.5-5.1); SODIUM LEVEL 136 MMOL/L (136-145)
[2025-01-30 09:45] LABS: OSMOLALITY SERUM 314 MOSM/KG (280-301)
[2025-01-30 09:49] LABS: KETONE, URINE AUTO RFX TRACE mg/dL (NEGATIVE); LEUKOCYTE ESTERASE UR AUTO RFX NEGATIVE (NEGATIVE); NITRITE, URINE AUTO RFX NEGATIVE (NEGATIVE); RBC, URINE AUTO RFX 2 /HPF (0-3); SQUAM EPITHELIAL CELL UR AURFX 40 /HPF (0-6); WBC, URINE AUTO RFX 3 /HPF (0-3)
[2025-01-30] MEDS: PANTOPRAZOLE 40MG VIAL IV ONE (10:19)
[2025-01-30] MEDS: MAG SULF 1GM/100ML (MAG RUN) 1 GM in IV 1 EA IV ONE (10:20)
[2025-01-30] MEDS: PANTOPRAZOLE SODIUM 40 MG in D5W 50 ML IV SCH (10:20)
[2025-01-30] MEDS: NS (Normal Saline) 0.9% 1,000 ML IV ONE (10:20)
[2025-01-30] MEDS: OCTREOTIDE ACETATE 1,200 MCG in NS 238.8 ML IV SCH (10:40)
[2025-01-30] MEDS: OCTREOTIDE ACETATE 100 MCG/ML VIAL **IV ADMINISTRATION ONLY IV ONE (10:41)
[2025-01-30 10:46] LABS: ESTIMATED AVERAGE GLUCOSE 140.0 MG/DL (60-110)
[2025-01-30 10:58] LABS: INR 1.75
[2025-01-30 11:54] VITALS: BP 105/54; TEMP 96.9; O2SAT 100
== END 2025-01-30 11:55 | disposition short-term general hospital (02) ==
LOC: EDBD 08:27 → M ED 08:27
DX: K92.2 Gastrointestinal hemorrhage, unspecified (principal); E11.649 Type 2 diabetes mellitus with hypoglycemia without coma; N17.9 Acute kidney failure, unspecified; R00.0 Tachycardia, unspecified; I25.119 Atherosclerotic heart disease of native coronary artery with unspecified angina pectoris; I25.2 Old myocardial infarction; D50.9 Iron deficiency anemia, unspecified; Z88.5 Allergy status to narcotic agent; Z88.8 Allergy status to other drugs, medicaments and biological substances; Z79.1 Long term (current) use of non-steroidal anti-inflammatories (NSAID); Z79.4 Long term (current) use of insulin; Z79.84 Long term (current) use of oral hypoglycemic drugs; Z79.899 Other long term (current) drug therapy
CPT/HCPCS: 71045; 80048; 80076; 81001; 82010; 82803; 83036; 83690; 83735; 83930; 85025; 85610; 85730; 86140; 86850; 86870; 86900; 86901; 93005; 93041; 94760; 96365; 96375; 99285; J2354; J2470; J3475